=== PATIENT | female | born 1955 | race Caucasian/White ===

== ENCOUNTER 2018-07-12 10:45 | Emergency (ER) | payer OTHER ==
[~2018-07-12] VITALS: Ht 167.6 cm; Wt 45.8 kg
[2018-07-12] MEDS ORDERED: TOBRAMYCIN SULFA5 M1 OPHTHALMIC (11:56)
[2018-07-12] MEDS ORDERED: NORCO 5-325 TA1 EACH PO (11:56)
[2018-07-12] MEDS ORDERED: SENNA-DOCUSATE1 EACH PO (11:56)
[2018-07-12 12:31] VITALS: BP 153/67
== END 2018-07-12 12:47 | disposition home or self-care (01) ==
LOC: ER 10:45
DX: S05.02XA Injury of conjunctiva and corneal abrasion without foreign body, left eye, initial encounter (principal); F41.9 Anxiety disorder, unspecified; F32.9 Major depressive disorder, single episode, unspecified; F20.9 Schizophrenia, unspecified; F17.210 Nicotine dependence, cigarettes, uncomplicated; W20.8XXA Other cause of strike by thrown, projected or falling object, initial encounter; Y93.89 Activity, other specified; Y92.89 Other specified places as the place of occurrence of the external cause; Y99.8 Other external cause status

== ENCOUNTER → 2019-02-03 | Outpatient (CLI) | payer OTHER ==
[~2019-02-03] MED LIST: NORCO 5-325 TA1 EACH PO; SENNA-DOCUSATE1 EACH PO; TOBRAMYCIN SULFA5 M1 OPHTHALMIC
== END ==
LOC: RAD 02:28
DX: Z12.31 Encounter for screening mammogram for malignant neoplasm of breast (principal)

== ENCOUNTER 2021-03-02 16:36 | Inpatient (IN) | payer OTHER ==
[~2021-03-02] VITALS: Ht 170.2 cm; Wt 72.6 kg
--- NOTE | ~2021-03-02 | EMS ---
[address] [address] EMS Patient Care Report Name: RODOLFO PINTO Room #: 462-P [facility] IN M.R.#: [id number] Admission: 03/02/21 Attend Phys: Arsalan Castillo Discharge: 03/21/21 Date of : 57 Report #: [id number] THIS REPORT FOR: //name// Report Transmitted: 03/25/2021 14:18 EMS Care Summary [place], [place]/[facility] Incident [id number] @ 03/02/2021 16:04 Incident Location [address] [place] [address] Patient RODOLFO PINTO Female, 65 Years 1955 Patient Address [address] [place] [id number] Patient History Hyperlipidemia,Urinary Tract Infection (UTI),Bipolar II Disorder,Anemia,Hypothyroidism, Patient Allergies Haldol, Patient Medications Trazodone, Polyethlene Glycol, Oxybutynin, Aspirin, Furosemide, Mirtazapine, Ferrous Sulfate, Mucinex, Bonneau, Meloxicam, Acetaminophen, Atorvastatin, Levothyroxine, Ropinirole, Clonazepam, Chief Complaint AMS Disposition Transported No Lights/[place] Dispatch Reason Sick Person Transported To [address] [address] EMS Patient Care Report Name: RODOLFO IPNTO Room #: 462-P [facility] IN .R.#: [id number] Admission: 03/02/21 Attend Phys: Arsalan Lay Anna Discharge: 03/21/21 Date of : 57 Report #: [id number] M36 DISPATCHED ON A SICK PERSON. M36 ARRIVED TO [facility] TO FIND CONSULTING SOLUTION DIRECTOR PRINTING PAPERWORK FOR EMS. [facility] STAFF STATED PT LABS DRAWN ON THURSDAY CAME BACK SHOWING SIGNS OF SEPSIS. PT STATED NO CHIEF COMPLAINT. PT ALERT TO VERBAL PROMPTS. PT MOANED IN RESPONSE TO QUESTIONS. PT FOUND LAYING SUPINE IN BED. PT NORMALLY AMBULATORY WITHOUT ASSISTIVED DEVICES. PT TOO WEAK TO GET OUT OF BED TODAY. PT MOVED TO STRETCHER VIA TWO PERSON SHEET LIFT. PT SECURED WITH SEATBELTS. NH STAFF STATED PT NORMALLY ALERT AN ORIENTED X4. SURGICAL MASK PLACED ON PT. PT SKIN PALE AND WARM TO THE TOUCH. PT VS MONITORED EN ROUTE. PT REPORT GIVEN. PT MOVED TO HOSPITAL BED VIA TWO PERSON SHEET LIFT. PT CARE AND BELONGINGS TRANSFERRED TO ER STAFF AT [facility] WITHOUT INCIDENT. M36 PLACED BACK IN SERVICE. Initial Vitals @16:25P: 102,R: 20,BP: 108/78,Pain: 4/10,GCS: 12,Glucose: 160,CO: 4,SpO2: 96,Revised Trauma: 11, @16:28P: 104,R: 20,BP: 116/76,Pain: 4/10,GCS: 12,SpO2: 96,Revised Trauma: 11, Assessments @16:16MENTAL:Confused,SKIN:Hot,Pale,HEENT:LUNG SOUNDS:ABDOMEN:PELVIS//GI:Incontinence,EXTREMITIES:Left Arm: Weakness,Right Arm: Weakness,Left Leg: Weakness,Right Leg: Weakness,PULSE:Radial: 2+ Normal,NEURO: Impression Sepsis/Septicemia Procedures @16:16ALS AssessmentResponse: UnchangedSucceeded Timeline 16:01,Call Received 16:01,Dispatch Notified 16:04,Dispatched 16:05,En Route 16:13,On Scene 16:15,At Patient 16:16,ALS Assessment,Response: UnchangedSucceeded, 16:25,BP: 108/78 M,PULSE: 102,RR: 20 R,SPO2: 96 Ox,ETCO2: ,B,PAIN: 4,GCS: 12, 16:26,Depart Scene 16:28,BP: 116/76 M,PULSE: 104,RR: 20 R,SPO2: 96 Ox,ETCO2: ,BG: ,PAIN: 4,GCS: 12, 16:33,At Destination 16:50,Call Closed [facility] [address] [place] [address] EMS Patient Care Report Name: RODOLFO PINTO Room #: 462-P [facility] IN .R.#: [id number] Admission: 03/02/21 Attend Phys: Arsalan Castillo Discharge: 03/21/21 Date of : 57 Report #: [id number] Disclaimer v1.1 Copyright 2020 [employer] This EMS Care Summary contains data elements from the applicable legal record (which may be displayed differently). It is designed to provide pertinent information for the following purposes: continuity of care, clinical quality, and state data reporting. The complete legal record is available to ED staff and administrators of the receiving hospital in [facility]'s Patient Tracker. All data is provided "as is."
[2021-03-02 16:37] VITALS: BP 128/78
[2021-03-02 17:06] LABS: HEMATOCRIT 32.7 % (37.0-47.0); HEMOGLOBIN 10.6 gm/dL (12.0-15.0); MCH 30.6 pg (26.0-34.0); MCHC 32.5 g/dL (28.0-37.0); MCV 94.1 fL (80.0-100.0); PLATELET COUNT 383 thou/uL (150-400); RBC 3.47 mil/uL (4.20-5.00); RDW 14.8 % (10.5-14.5); WBC 27.9 thou/uL (4.0-11.0)
[2021-03-02] MEDS ORDERED: ASA81BEC PO (17:06)
[2021-03-02] MEDS ORDERED: LIPITOR10 MG PO (17:06)
[2021-03-02] MEDS ORDERED: BISMATROL525 MG/15 PO (17:07)
[2021-03-02] MEDS ORDERED: KLONOPIN0.5 MG PO (17:07)
[2021-03-02] MEDS ORDERED: CHILDREN'S ZYRT10 M1 PO (17:07)
[2021-03-02] MEDS ORDERED: COLACE100 MG PO (17:08)
[2021-03-02] MEDS ORDERED: LEVO-T100 MCG PO (17:08)
[2021-03-02] MEDS ORDERED: FUROSEMIDE 20 M20 MG PO (17:08)
[2021-03-02] MEDS ORDERED: SLOW FE142 MG PO (17:08)
[2021-03-02] MEDS ORDERED: OXYBUTYNIN 5 MG5 M1 PO (17:09)
[2021-03-02] MEDS ORDERED: LITHIUM CARBON300 M7 PO (17:09)
[2021-03-02] MEDS ORDERED: MIRTAZAPINE7.5 MG PO (17:09)
[2021-03-02] MEDS ORDERED: MELOXICAM7.5 MG PO (17:09)
[2021-03-02] MEDS ORDERED: ROPINIROLE HCL0.5 MG PO (17:10)
[2021-03-02] MEDS ORDERED: SAPHRIS5 MG DISSOLVE (17:10)
[2021-03-02] MEDS ORDERED: SENEXON-S 50-81 EACH PO (17:10)
[2021-03-02] MEDS ORDERED: DESYREL150 MG PO (17:11)
[2021-03-02] MEDS ORDERED: VITAMIN C500 M2 PO (17:11)
[2021-03-02 17:14] LABS: CALCIUM 11.7 mg/dL (8.5-10.1); CREATININE 6.5 mg/dL (0.6-1.0); POTASSIUM 4.4 mmol/L (3.5-5.1)
[2021-03-02 17:20] LABS: ALBUMIN 2.6 g/dL (3.4-5.0); DIRECT BILIRUBIN 0.3 mg/dL (<0.1-0.2); TOTAL BILIRUBIN 0.6 mg/dL (0.2-1.0); TOTAL PROTEIN 8.5 g/dL (6.4-8.2)
[2021-03-02 17:30] LABS: ABSOLUTE NEUTROPHILS 27.1 thou/uL (1.4-8.2)
[2021-03-02 17:32] LABS: TOXIC GRANULATION 1+
[2021-03-02 17:39] LABS: URINE BILIRUBIN NEGATIVE (Negative); URINE BLOOD 3+ (Negative); URINE CLARITY SL CLOUDY; URINE COLOR YELLOW; URINE GLUCOSE-RANDOM* NEGATIVE (Negative); URINE KETONES NEGATIVE (Negative); URINE LEUKOCYTES-REFLEX 3+ (Negative); URINE NITRITE-REFLEX NEGATIVE (Negative); URINE PROTEIN (DIPSTICK) 2+ (Negative); URINE UROBILINOGEN 0.2 E.U./dl (0.2-1.0)
[2021-03-02 17:42] LABS: BACTERIA-REFLEX >30 Many /HPF (None Seen); CASTS None Seen /LPF (None Seen); CRYSTALS None Seen /LPF (None Seen); SQUAMOUS None Seen /LPF (0-3); URINE RBC 3-10 Few /HPF (NONE SEEN); URINE WBC-REFLEX >25 Many /HPF (0-5)
[2021-03-02 18:25] LABS: BE(vivo) -8.3 mmol/L (-2 to +3); HCO3 17.3 mmol/L (22.0-26.0); PCO2 35.9 mmHg (35.0-45.0); PO2 81.4 mmHg (80.0-100.0); pH 7.302 (7.360-7.450); sO2 95.1 % (92.0-98.0)
[2021-03-02 18:27] LABS: APTT 25.9 Seconds (24.5-32.8); INR 1.09; PROTIME 11.8 Seconds (10.5-12.1)
[2021-03-02 18:35] LABS: FIBRINOGEN > 860 mg/dL (201-437)
[2021-03-02 19:05] VITALS: BP 118/73
[2021-03-02 20:00] VITALS: BP 120/65
[2021-03-02 21:00] VITALS: BP 131/72
[2021-03-02 22:00] VITALS: BP 136/67
[2021-03-02 23:00] VITALS: BP 117/59
[2021-03-03] VITALS (24 sets, daily range): BP systolic 95–154; BP diastolic 51–79
[2021-03-03 02:41] LABS: ABSOLUTE NEUTROPHILS 21.7 thou/uL (1.4-8.2); BASOPHILS 0.1 % (0.0-2.0); EOSINOPHILS 0.4 % (0.0-3.0); HEMATOCRIT 26.5 % (37.0-47.0); LYMPHOCYTES 1.2 % (24.0-44.0); MCH 30.8 pg (26.0-34.0); MCHC 32.3 g/dL (28.0-37.0); MCV 95.6 fL (80.0-100.0); MONOCYTES 6.7 % (1.0-8.0); PLATELET COUNT 311 thou/uL (150-400); POLYS 91.6 % (36.0-66.0); RBC 2.78 mil/uL (4.20-5.00); RDW 14.8 % (10.5-14.5); WBC 23.7 thou/uL (4.0-11.0)
[2021-03-03 02:49] LABS: CALCIUM 9.8 mg/dL (8.5-10.1); CREATININE 5.7 mg/dL (0.6-1.0); POTASSIUM 4.4 mmol/L (3.5-5.1)
[2021-03-03 02:51] LABS: HEMOGLOBIN 8.6 gm/dL (12.0-15.0)
--- NOTE | 2021-03-03 15:59 | NUR ---
PATIENT TRANSFERRED TO AT 1550. CHART TAKEN WITH PATIENT. NO BELONGINGS WERE IN ROOM WITH THE PATIENT.
--- NOTE | 2021-03-03 18:50 | NUR ---
PATEINT ADMITTED TO UNIT. SHE IS LETHERGIC, ONLY GRUNTS WITH MOVED. NOTED TO HAVE LOW GRADE FEVER AND PRN TYLENOL SUPP GIVEN. SMITH CATH IN PLACE. WILL CONT WITH PLAN OF CARE.
--- NOTE | 2021-03-04 04:00 | NUR ---
Assumed pt care at 1900. Pt lethargic,awakens to name and mumbling some words when spoken to, moans with movement. VSS. Repositioned every 2 hrs w/o problems. Rabago patent to DD with yellow urine with sediments noted. NSR on tele. Skin intact. Fall precautions in place, resting quietly at this time w/o any distress noted. Will continue to monitor pt.
[2021-03-04 05:03] VITALS: BP 122/55
[2021-03-04 05:32] LABS: ABSOLUTE NEUTROPHILS 22.6 thou/uL (1.4-8.2); BASOPHILS 0.2 % (0.0-2.0); EOSINOPHILS 0.1 % (0.0-3.0); HEMATOCRIT 27.2 % (37.0-47.0); HEMOGLOBIN 8.6 gm/dL (12.0-15.0); LYMPHOCYTES 2.1 % (24.0-44.0); MCH 30.6 pg (26.0-34.0); MCHC 31.5 g/dL (28.0-37.0); MCV 97.3 fL (80.0-100.0); MONOCYTES 6.4 % (1.0-8.0); PLATELET COUNT 383 thou/uL (150-400); POLYS 91.2 % (36.0-66.0); RBC 2.79 mil/uL (4.20-5.00); RDW 15.8 % (10.5-14.5); WBC 24.8 thou/uL (4.0-11.0)
[2021-03-04 05:44] LABS: ALBUMIN 1.8 g/dL (3.4-5.0); CALCIUM 10.7 mg/dL (8.5-10.1); CREATININE 4.9 mg/dL (0.6-1.0); POTASSIUM 4.8 mmol/L (3.5-5.1); TOTAL BILIRUBIN 0.5 mg/dL (0.2-1.0); TOTAL PROTEIN 6.6 g/dL (6.4-8.2)
[2021-03-04 07:09] VITALS: BP 129/75
--- NOTE | 2021-03-04 08:21 | HC ---
[facility] [place] [address] CONSULTATION Name: RODOLFO PINTO Room #: 452-P ADM IN M.R.#: [id number] Admission: 03/02/21 Attend Phys: Arsalan Castillo Discharge: Date of : 57 Report #: [id number] THIS REPORT FOR: cc: Reece Sigala MD, Dennis R MD Barry,Roderick Soliman MD ~ DOC #: [id number] Roderick Olsen MD DATE OF SERVICE: 03/03/2021 INFECTIOUS DISEASE CONSULTATION ATTENDING PHYSICIAN: Dr. Castillo. REASON FOR EVALUATION: Severe sepsis. REASON FOR CONSULTATION: Complicated urinary tract infection. HISTORY OF PRESENT ILLNESS: Chart was reviewed. The patient was examined. This is a 65-year-old woman with history of bipolar disease, schizophrenia, also has known coronary artery disease, recurrent UTIs, who is living in a facility, is noted to have altered mental status due to concern about possible complicating factor. Blood was drawn. White count was elevated at 21,000, was noted to have some pyuria, transferred to the Emergency Room, it is clear that she was hemodynamically unstable, prompted [facility] admission. Chest x-ray, question of a right-sided pneumonitis, although lactic acid was in the normal range at 0.7, procalcitonin was elevated at 12.77, and as noted above urinalysis showed greater than 25 white cells. Repeat CBC showed white count had increased to 23.7. Due to concern about onset of sepsis, she was treated with combination therapy including Levaquin, vancomycin and Zosyn. It is notable that creatinine was elevated to 6.5, unclear if this is a chronic issue. She is quite confused at this point, it is not clear if she has any true coherence. She is unable to add any additional history. ALLERGIES: LISTED TO HALDOL. CURRENT MEDICATIONS: Include vancomycin, Zosyn, famotidine, acetaminophen, ondansetron. PAST MEDICAL HISTORY: Includes bipolar disease, schizophrenia, coronary artery disease, hypothyroidism, recurrent UTIs, hyperlipidemia. SOCIAL HISTORY: She is disabled, lives in a facility. Details of ethanol or tobacco use were unknown. REVIEW OF SYSTEMS: Unobtainable. [facility] [address] [place] [address] CONSULTATION Name: RODOLFO PINTO Cecilio Room #: [address] [place] [address] IN [facility].#: [id number] Admission: 03/02/21 Attend Phys: Arsalan Castillo Discharge: Date of : 57 Report #: [id number] PHYSICAL EXAMINATION: GENERAL: She appears chronically ill, much older than her age of 65. She is restless and agitated, is not responsive to specific questions or purposeful acts. VITAL SIGNS: Temperature 98.4, pulse 89, respirations 21, blood pressure 131/77. SKIN: Warm, dry, no rashes. HEENT: Normocephalic. She is not requiring supplemental oxygen at this point. NECK: Appears to be supple. LUNGS: Few scattered coarse breath sounds. HEART: Borderline tachycardic. I do not appreciate a murmur. ABDOMEN: Soft, questions guarding. There is no peritoneal signs. GENITOURINARY AND RECTAL: Deferred. LABORATORY DATA: Guttenberg elevated at 2.77. Lactic acid, most recently 0.5. Electrolytes: Sodium 143, potassium 4.4, chloride 111, bicarbonate 17, anion gap of 15, BUN and creatinine 106 and 5.7. CBC: White count of 23.7, H and H 8.6 and 26.5, platelets of 311. ABGs: pH 7.302, pCO2 of 35.8, pO2 of 81.4. ASSESSMENT: Severe sepsis, likely on the basis of complicated urinary tract infection, cannot entirely exclude an early pneumonitis as well. PLAN: Agree with empiric therapy. I think we can probably discontinue the vancomycin. Suggest likely a gram negative issue at this point, certainly could add as needed. We will await culture results including blood, urine as urinary antigens are pending as well. She remains quite tenuous at this point, continue to monitor expectantly. MD PETERSON Zarate/SAMIA <ELECTRONICALLY SIGNED> By: Roderick Olsen MD 03/04/21 0821 0612 0849 Roderick Olsen MD /nt
--- NOTE | 2021-03-04 10:06 | NUR ---
Received asleep on bed; rousable. On room air. Vital signs stable. On telemetry; no signs of chest pain, crushing sensation and heaviness. Assisted in ADLs. Non verbal, moans at times; as per night RN- pt A+Ox4, and ambulating using walker- Dr Castillo informed re: this. On nothing per orem- mouth swabs done. On blood sugar monitoring every 6 hrs. No nausea, no vomiting and no abdominal pain noted. With mukherjee in place- draining well; output measured and recorded accordingly. With NS at 125cc/hr, infusing well at L FA; with SL at R AC. Pt turned on her sides regularly. Incontinent of bowels- checked regularly and changed as needed. Falls bundle in place. No signs of pain noted during assessment. To continue monitoring patient.
[2021-03-04 11:47] LABS: CALCIUM 10.4 mg/dL (8.5-10.1); CREATININE 4.6 mg/dL (0.6-1.0); PHOSPHORUS 4.1 mg/dL (2.5-4.9)
[2021-03-04 15:29] VITALS: BP 146/76
[2021-03-04 20:13] VITALS: BP 139/75
[2021-03-05 04:34] LABS: HEMATOCRIT 28.3 % (37.0-47.0); HEMOGLOBIN 8.7 gm/dL (12.0-15.0); MCH 30.1 pg (26.0-34.0); MCHC 30.8 g/dL (28.0-37.0); MCV 97.9 fL (80.0-100.0); RBC 2.89 mil/uL (4.20-5.00); RDW 16.1 % (10.5-14.5); WBC 23.1 thou/uL (4.0-11.0)
--- NOTE | 2021-03-05 04:55 | NUR ---
ASSUMED PT CARE THIS SHIFT.PT NON-VERBAL,MAKES INCOMREHENSIBLE SOUNDS AND MOANS DURING CARE.PT SEEMS LETHARGIC.LUNGS CLR ON AUSCULTATIONS,VITALS SIGNS STABLE.SMITH DD LARGE AMOUNT OF YELLOW URINE.SR ON MONITOR.ON RA W/O RESP DISTRESS,SATS ADEQUATE.IVF PER ORDERS.NO SIGNIFICANT CHANGES NOTED OVERNIGHT.ASSESSMENT COMPLETED DOCUMENTED.
[2021-03-05 04:58] LABS: ALBUMIN 1.8 g/dL (3.4-5.0); CALCIUM 10.8 mg/dL (8.5-10.1); CREATININE 4.3 mg/dL (0.6-1.0); PHOSPHORUS 1.9 mg/dL (2.6-4.7); POTASSIUM 4.4 mmol/L (3.5-5.1)
[2021-03-05 05:38] VITALS: BP 127/69
[2021-03-05 07:35] VITALS: BP 120/73
--- NOTE | 2021-03-05 10:59 | NUR ---
ASSUMED PT CARE THIS AM. PT ALERT, BUT DOES NOT RESPOND VERBALLY TO QUESTIONS ASKED. PATIENT IN NO APPARENT PAIN. PATIENT HAS A LOOSE COUGH, NOT COUGHING ANY SPUTUM UP. THIS AM, TEMP WAS 101.4, GAVE RECTAL TYLENOL SUPPOSITORY AND FEVER DID NOT RESPOND MUCH. PATIENT QUALIFIES FOR SEPSIS PROTOCOL WELL. PHYSICIAN NOTIFIED OF TEMPERATURE AND THAT PATIENT QUALIFIES FOR SEPSIS PROTOCOL, PHYSICIAN TO MONITOR PATIENT FOR NOW, NO NEW ORDERS. PATIENT HAS A SMITH CATHETER IN PLACE DRAINING WELL. IV PATENT, FLUIDS AND ANTIBIOTICS INFUSING. PATIENT PLACED ON 3 LITERS OF OXYGEN VIA NC TO MAINTAIN AN OXYGEN SATURATION OF 93%. PATIENT REMAINS ON TELEMETRY. PATIENT REMAINS NPO, PROVIDING ORAL CARE TO PATIENT. FALL PRECAUTIONS ARE IN PLACE, CALL LIGHT WITHIN REACH.
--- NOTE | 2021-03-05 13:40 | NUR ---
PT ADMITTED RELATED TO SEVERE SEPSIS/SHOCK. CM REVIEWED CHART AND SPOKE WITH CARE TEAM. CM CALLED AND SPOKE WITH PT'S SON SOY PINTO WORK CALL . HE INDICATED THAT PT RESIDES IN LTC AT [facility]. HE STATED THAT PT HAS BEEN THERE FOR ABOUT 5 YRS. HE STATED THAT PT HAD BEEN INDEPENENT WITH GAIT AND ADLS AND USED NO DME. HE STATED THAT PT HAD BEEN CONVERSANT AND MOSTLY A&O X4. HE STATED THAT HE HAD VISITED AND EATEN DINNER ONCE WITH PT IN THE LAST TWO WEEKS. HE INDICATED THAT FACILITY HADN'T NOTIFIED HIM THAT PT WAS SENT TO HOSPITAL ON THURSDAY. HE INFORMED NURSE THAT HE HAD ACTUALLY NISHA PERSONAL ITEMS TO [facility] ON THURSDAY AND HE HADN'T BEEN TOLD ANYTHING. SON INDICATED THAT HE ANTICIPATES PT RETURNING TO [facility] ONCE MEDICALLY STABLE. PT IS ON IV VANC AND CEFTRIAXONE. CM PROVIDED HOSPITALIST BEST NUMBER TO REACH SON AT. NURSE INDICATED THAT KIRK THOMAS AT FACILITY HAD CALLED FOR UPDATE THIS AM. CM FOLLOWING REGARDING DC PLANNING.
[2021-03-05 18:07] LABS: CALCIUM 10.5 mg/dL (8.5-10.1); POTASSIUM 4.9 mmol/L (3.5-5.1)
[2021-03-05 19:30] VITALS: BP 142/79
[2021-03-06] VITALS (48 sets, daily range): BP systolic 117–186; BP diastolic 51–93
--- NOTE | 2021-03-06 04:13 | NUR ---
Pt. rested quietly when checked on during frequent rounds. She has been non- verbal, but will open her eyes. She has been turned and repositioned. Oral mouth care given frequently. Running sinus rythmn on the heart monitor. Head of the bed elevated. Bed alarm is on.
[2021-03-06 06:37] LABS: CALCIUM 11.2 mg/dL (8.5-10.1); CREATININE 3.8 mg/dL (0.6-1.0); POTASSIUM 4.4 mmol/L (3.5-5.1)
[2021-03-06 06:40] LABS: HEMATOCRIT 31.3 % (37.0-47.0); HEMOGLOBIN 9.2 gm/dL (12.0-15.0); MCH 29.7 pg (26.0-34.0); MCHC 29.5 g/dL (28.0-37.0); MCV 100.9 fL (80.0-100.0); PLATELET COUNT 505 thou/uL (150-400); RDW 17.6 % (10.5-14.5); WBC 26.8 thou/uL (4.0-11.0)
[2021-03-06 08:50] LABS: ABSOLUTE NEUTROPHILS 24.7 thou/uL (1.4-8.2); ANISOCYTOSIS 1+; METAMYELOCYTES 2 %; MYELOCYTES 1 %; POIKILOCYTOSIS SLIGHT; TEARDROPS OCCASIONAL
[2021-03-06 10:35] LABS: HCO3 15.4 mmol/L (22.0-26.0); PCO2 36.2 mmHg (35.0-45.0); PO2 50.7 mmHg (80.0-100.0); pH 7.246 (7.360-7.450); sO2 80.2 % (92.0-98.0)
--- NOTE | 2021-03-06 11:23 | NUR ---
ASSUMED PT CARE THIS AM. PT VSS. PLACED ON 2 LITERS NC INITIALLY, RESPIRATORY INCREASED HER OXYGEN TO 4L NC. PATIENT WITH A SMITH CATHETER DRAINING WELL. IV BECAME INFILTRATED, NEW IV STARTED TO RIGHT FOREARM. FLUIDS INFUSING WELL. PATIENT HAS A LOOSE COUGH, NOT ABLE TO COUGH UP ANY SPUTUM. BEING REPOSITIONED Q2H. REMAINS ON TELEMETRY. PATIENT REMAINS NPO. CRITICAL BLOOD GAS RESULTS CALLED AND REPORTED TO UNIT OF pH 7.25 [address] 51[address] RAMESH ON UNIT AND MADE AWARE. PATIENT TO TRANSFER TO ICU, BIPAP ORDER IN PLACE AND STARTED ON THIS UNIT. [facility] ICU BED AT THIS TIME.
--- NOTE | 2021-03-06 11:47 | NUR ---
PT'S SON CALLED THIS AM. HE INQUIRED ABOUT POSSIBLY SEEING IF ANOTHER FACILITY COULD BE FOUND FOR POSSIBLE ADMISSION. CM INDICATED THAT CM COULDN'T GAUREENTEE THAT ALTERNATE PLACEMENT COULD BE FOUND IN THE TIME FRAME PT WOULD BE MEDICALLY STABLE FOR DC BUT THAT CM COULD SEND SOME REFERRALS OUT. SON WAS AGREEABLE WITH CM SENDING REFERRALS. CM INFOMRED PT'S SON PANCHITO SOY THAT CM HAD SPOKEN TO DON AT [facility] YESTERDAY AND REQUESTED COPY OF DPOA AND FAXED CLINICAL UPDATE. CM INDICATED THAT CM HADN'T YET RECIEVED FAX WITH DPOA FROM THEM. SON EMAILED COPY OF DPOA. CM PLACED ON CHART. LATER THIS MORNING CARE TEAM INDICATED THAT PT HAD CHANGE IN CONDITION AND ORDERED THAT PT BE PUT ON BIPAP AND TRANSFERED TO ICU. PT TO TRANSFER TO ICU ROOM 249. NURSE NOTIFIED SON OF TRANSFER. CM TO FOLLOW INDICATED WITH DC PLANNING.
[2021-03-06 12:07] LABS: GLOBULIN TOTAL 3.4 g/dL (2.2-3.9); M-SPIKE 0.2 g/dL (Not Observed)
--- NOTE | 2021-03-06 12:17 | NUR ---
PT TRANSFERED FROM FLOOR VIA BED ON BIPAP. SEE CRITICAL CARE ASSESSMENT. PT TOLORATING BIPAP 18/03 RATE 12 50%. MINIMALLY RESPONSIVE. PLACED ON MONITOR. D5W INFUSING AT 200CC/HR. VSS. BED IN ROTATION SO ALL RAILS UP.
[2021-03-06 12:58] LABS: HCO3 15.6 mmol/L (22.0-26.0); PCO2 37.6 mmHg (35.0-45.0); PO2 77.4 mmHg (80.0-100.0); sO2 93.3 % (92.0-98.0)
[2021-03-06 12:59] LABS: pH 7.237 (7.360-7.450)
--- NOTE | 2021-03-06 13:45 | NUR ---
CALLED DR. RAMESH, RE ABG RESULTS, DR CURRY PAGED WELL BUT THIS RN DID NOT HEAR BACK. NO NEW ORDERS. ALSO REPORTED MD NEEDS TO TALK TO PT SON REGARDING LUMBAR PUNCTURE BEFORE IT CAN BE DONE. STATED HE WILL CALL BACK ONCE CONSENT OBTAINED. RADIOLOGY NOTIFIED.
[2021-03-06 15:21] LABS: CALCIUM 10.6 mg/dL (8.5-10.1); CREATININE 3.7 mg/dL (0.6-1.0); PHOSPHORUS 2.7 mg/dL (2.5-4.9); POTASSIUM 4.5 mmol/L (3.5-5.1)
--- NOTE | 2021-03-06 17:00 | NUR ---
CALLED DR. IRWIN ([facility]) STATES OK TO PLACE ANY KIND OF CENTRAL LINE.
--- NOTE | 2021-03-06 18:22 | NUR ---
A #6F TRIPLE LUMEN CENTRAL LINE WAS PLACED PER HOSPITAL POLICY AFTER A BEDSIDE TIMEOUT WAS COMPLETED. THE 25CM LINE WAS ADVANCED WITHOUT DIFFICULTY. A STAT CHEST XRAY WAS ORDERED FOR CONFIRMATION
--- NOTE | 2021-03-06 18:29 | NUR ---
PT NOT PROGRESSING TOWARDS GOALS. MOSTLY UNRESPONSIVE STILL OPENS EYES SPONTANEOUSLY BUT DOES NOT TRACK. MINIMAL WITHDRAWAL ALL FOUR EXT. NEUROLOGY HAS SEEN PT AWAITING ORDERS. SON HERE TO VISIT. UPDATE GIVEN. EMOTIONAL SUPPORT GIVEN. CENTRAL LINE PLACED. DR. RODRIGUEZ CALLED [facility] RESULTS. NO NEW ORDERS.
--- NOTE | 2021-03-06 18:38 | NUR ---
DR. CURRY CALLED. PT INCREASED WORK OF BREATHING. USING ACCESSORY MUSCLES TO BREATH. SOUNDS MORE COARSE POST D5W. ORDERS GIVEN TO INCREASE EPAP TO 8. MD STATES HE WILL CALL [facility] TO CONSULT AND CALL BACK.
[2021-03-07] VITALS (28 sets, daily range): BP systolic 100–162; BP diastolic 45–98
[2021-03-07 04:54] LABS: HEMATOCRIT 28.2 % (37.0-47.0); HEMOGLOBIN 8.6 gm/dL (12.0-15.0); MCH 31.1 pg (26.0-34.0); MCHC 30.7 g/dL (28.0-37.0); MCV 101.3 fL (80.0-100.0); RBC 2.78 mil/uL (4.20-5.00); RDW 17.4 % (10.5-14.5); WBC 23.9 thou/uL (4.0-11.0)
[2021-03-07 05:16] LABS: ALBUMIN 1.9 g/dL (3.4-5.0); CALCIUM 10.7 mg/dL (8.5-10.1); CREATININE 3.3 mg/dL (0.6-1.0); MAGNESIUM 2.5 mg/dL (1.8-2.4); POTASSIUM 4.7 mmol/L (3.5-5.1); TOTAL BILIRUBIN 0.3 mg/dL (0.2-1.0)
[2021-03-07 05:21] LABS: PLATELET COUNT 383 thou/uL (150-400)
[2021-03-07 08:54] LABS: ANISOCYTOSIS 1+; METAMYELOCYTES 2 %
--- NOTE | 2021-03-07 09:09 | NUR ---
SPOKE WITH SON SOY AT 0909 TO CONFIRM CONSENT FOR LUMBAR PUNCTURE. CONSENT SIGNED OVER TELEPHONE AND VERIFIED BY 2RNS ON 03/06 AT 1300. SOY AWARE OF PROCEDURE TO OCCUR THIS AM.
--- NOTE | 2021-03-07 12:11 | EKG ---
[facility] [place] [address] ELECTROCARDIOGRAM REPORT Name: RODOLFO PINTO Room #: 249-P ADM IN M.R.#: [id number] Admission: 03/02/21 Attend Phys: Arsalan Castillo Discharge: Date of : 57 Report #: [id number] [facility] Test Date: 2021-03-07 Test Time: 11:47:09 Pat Name: RODOLFO PINTO Department: Room: 249 P Gender: F Story Teller: LISETH : 1955 Requested By: See Benitez Order Number: [id number] MD: Joel Campbell Measurements Intervals [place] Rate: 79 P: 65 VT: 128 QRS: -43 QRSD: 122 T: 81 QT: 396 QTc: 455 Interpretive Statements Sinus rhythm Multiple ventricular premature complexes Nonspecific IVCD with LAD Left ventricular hypertrophy Anterior infarct, old Baseline wander in lead(s) V1,V3 No previous ECG available for comparison Electronically Signed On 03-07-2021 12:11:06 CDT by Joel Campbell [email or web address] <ELECTRONICALLY SIGNED> By: Joel Campbell MD, [facility] 03/07/21 1211 1147 1147 Joel Campbell MD, [facility] /EPI
[2021-03-07 13:44] LABS: CSF GLUCOSE 161 mg/dL (40-70); CSF PROTEIN 38 mg/dL (15-45)
[2021-03-07 14:06] LABS: CSF CLARITY CLEAR; CSF COLOR COLORLESS; CSF RBC 1 /mm3; CSF WBC 2 /mm3 (0-10); VOLUME 11 ml
--- NOTE | 2021-03-07 15:18 | NUR ---
PATIENT OFF UNIT FOR LP AROUND 1230 THIS AFTERNOON. UPON RETURN TO ICU NOTED PATIENT TO HAVE FREQUENT EPISODES OF BRADYCARDIA. NOTIFIED DR. STROM. NAQVI FOR NOW. PAGE OUT TO DR. RAMESH. EKG DONE SHOWING SINUS BRADYCARDIA. BLOOD PRESSURES STABLE. PATIENT REMAINS MINIMALLY RESPONSIVE. WILL OPEN EYES AND MOAN BUT DOES NOT FOLLOW ANY PURPOSEFUL COMMANDS. IV FLUIDS INFUSING PER RENAL ORDERS. CONTINUOUS BIPAP. SMITH PATENT. ADQUATE URINE OUTPUT.
--- NOTE | 2021-03-07 16:20 | EKG ---
[place] [address] [facility] [facility] [employer] [employer] [address] ELECTROCARDIOGRAM REPORT Name: RODOLFO PINTO Room #: 249-P ADM IN M.R.#: [id number] Admission: 03/02/21 Attend Phys: Arsalan Castillo Discharge: Date of : 57 Report #: [id number] [facility] Test Date: 2021-03-07 Test Time: 15:16:23 Pat Name: RODOLFO PINTO Department: Room: 249 P Gender: F Signal Worker: LISETH : 1955 Requested By: See Benitez Order Number: [id number] MD: Joel Campbell Measurements Intervals [place] Rate: 49 P: 46 MN: 130 QRS: -39 QRSD: 124 T: 65 QT: 445 QTc: 402 Interpretive Statements Sinus bradycardia Nonspecific IVCD with LAD Anteroseptal infarct, age indeterminate Compared to ECG 03/07/2021 11:47:09 Sinus rhythm no longer present Ventricular premature complex(es) no longer present Left ventricular hypertrophy no longer present Myocardial infarct finding still present Electronically Signed On 03-07-2021 16:20:50 CDT by Joel Campbell [email or web address] <ELECTRONICALLY SIGNED> By: Joel Campbell MD, [facility] 03/07/21 1620 1516 1516 Joel Campbell MD, [facility] /EPI
[2021-03-07 21:06] LABS: SERUM ALBUMIN 2.5 g/dL (3.8-4.8)
[2021-03-08] VITALS (26 sets, daily range): BP systolic 90–157; BP diastolic 47–119
[2021-03-08 04:55] LABS: BE(vivo) -11.8 mmol/L (-2 to +3); HCO3 14.2 mmol/L (22.0-26.0); PCO2 32.9 mmHg (35.0-45.0); PO2 72.7 mmHg (80.0-100.0); sO2 92.5 % (92.0-98.0)
[2021-03-08 04:56] LABS: pH 7.254 (7.360-7.450)
[2021-03-08 05:24] LABS: HEMATOCRIT 27.4 % (37.0-47.0); HEMOGLOBIN 8.2 gm/dL (12.0-15.0); MCH 30.1 pg (26.0-34.0); MCHC 29.8 g/dL (28.0-37.0); RBC 2.72 mil/uL (4.20-5.00); RDW 17.3 % (10.5-14.5); WBC 27.3 thou/uL (4.0-11.0)
[2021-03-08 05:43] LABS: CALCIUM 10.6 mg/dL (8.5-10.1); CREATININE 2.8 mg/dL (0.6-1.0); POTASSIUM 4.3 mmol/L (3.5-5.1)
--- NOTE | 2021-03-08 10:27 | 2DMMODE ---
[facility] [place] [address] 2 D/M-MODE ECHOCARDIOGRAM Name: RODOLFO PINTO Cecilio Room #: 249-P ADM IN M.R.#: [id number] Admission: 03/02/21 Attend Phys: Arsalan Castillo Discharge: Date of : 57 Report #: [id number] THIS REPORT FOR: cc: Reece Sigala MD, Dennis R MD Santiago, Patrick MD LOCATED WITHIN [facility] ~ APPROVED REPORT Study performed: 03/08/2021 09:28:03 EXAM: Comprehensive 2D, Doppler, and color-flow Echocardiogram Patient Location: ICU Room #: 249 Status: routine BSA: 1.83 HR: 69 bpm BP: 142/73 mmHg Rhythm: NSR Other Information Study Quality: Good Indications Arrhythmia 2D Dimensions RVDd: 33.69 mm IVSd: 10.44 (7-11mm) LVOT Diam: 21.73 (18-24mm) LVDd: 45.58 mm PWd: 9.93 (7-11mm) Ascending Ao: 33.84 (22-36mm) LVDs: 30.87 (25-40mm) Left Atrium: 32.19 (27-40mm) Aortic Root: 31.77 mm IVC: 13.00 mm Volumes Left Atrial Volume (Systole) Single Plane 4CH: 66.49 mL Single Plane 2CH: 48.55 mL LA ESV Index: 34.00 mL/m2 Aortic Valve AoV Peak Pradeep.: 1.51 m/s AO Peak Gr.: 9.12 mmHg LVOT Max P.34 mmHg LVOT Max V: 1.35 m/s CELIA Vmax: 3.32 cm2 [facility] [address] [place] [address] 2 D/M-MODE ECHOCARDIOGRAM Name: RODOLFO PINTO Room #: 249-P [facility] IN ..#: [id number] Admission: 03/02/21 Attend Phys: Arsalan Clay Discharge: Date of : 57 Report #: [id number] Pulmonary Valve PV Peak Pradepe.: 1.20 m/s PV Peak Gr.: 5.72 mmHg Tricuspid Valve TR Peak Pradeep.: 2.96 m/s TR Peak Gr.: 35.07 mmHg PA Pressure: 40.00 mmHg Left Ventricle The left ventricle is normal size. There is normal LV segmental wall motion. There is normal left ventricular wall thickness. The left ventricular systolic function is normal. The left ventricular ejection fraction is within the normal range. LVEF is 55-60%. Grade I - abnormal relaxation pattern. Right Ventricle The right ventricle is normal size. The right ventricular systolic function is normal. Atria Left atrium is borderline dilated. Right atrium is borderline dilated. Aortic Valve The aortic valve is normal in structure. The Aortic valve is sclerotic. No aortic regurgitation is present. There is no aortic valvular stenosis. Mitral Valve The mitral valve is normal in structure. Trace mitral regurgitation. No evidence of mitral valve stenosis. Tricuspid Valve The tricuspid valve is normal in structure. There is trace tricuspid regurgitation. Estimated PAP 40 mmHg. There is mild pulmonary hypertension. Pulmonic Valve The pulmonary valve is normal in structure. There is no pulmonic valvular regurgitation. Great Vessels The aortic root is normal in size. IVC is normal in size and collapses >50% with inspiration. [facility] [place] [address] [place] [address] 2 D/M-MODE ECHOCARDIOGRAM Name: RODOLFO PINTO Room #: 249-P [facility] IN .R.#: [id number] Admission: 03/02/21 Attend Phys: Arsalan Clay Discharge: Date of : 57 Report #: [id number] Pericardium There is no pericardial effusion. <Conclusion> Normal left ventricle size/wall thickness Ejection fraction 60% Normal right ventricular size/function Mild biatrial enlargement Color-flow Doppler studies performed of the aortic/mitral/tricuspid/pulmonary valve Normal aortic/mitral valve structure and function Trace tricuspid valve insufficiency Pulmonary systolic pressure estimated 40 mmHg No pericardial effusion Normal aortic root size. <ELECTRONICALLY SIGNED> By: Joel Campbell MD, [facility]ATED [facility] 03/08/21 1027 1027 1027 Joel Campbell MD, FACC /INF
[2021-03-08 12:26] LABS: BE(vivo) -6.6 mmol/L (-2 to +3); HCO3 18.1 mmol/L (22.0-26.0); PCO2 33.1 mmHg (35.0-45.0); PO2 85.1 mmHg (80.0-100.0); pH 7.356 (7.360-7.450); sO2 96.2 % (92.0-98.0)
--- NOTE | 2021-03-08 14:04 | NUR ---
Discussed during am rounds and los with hospitalist. No anticipated weekend dc. She lives at [facility]. Cont to require use of BIPAP and oxygen. Will cont. Following as needed for dc needs.
[2021-03-08 14:07] LABS: 25-HYDROXY TOTAL 19.5 ng/mL (30.0-100.0)
--- NOTE | 2021-03-08 17:29 | NUR ---
dr paredes called abg results. general update given. no new orders.
--- NOTE | 2021-03-08 17:29 | NUR ---
Pt son here. Update given. Emotional support given.
--- NOTE | 2021-03-08 18:30 | NUR ---
PT PROGRESSING TOWARDS GOALS. TOLORATING L NASAL CANNULA. BICARB GTT. US THYROID DONE TODAY. ECHO DONE TODAY.
[2021-03-09] VITALS (22 sets, daily range): BP systolic 98–161; BP diastolic 51–107
[2021-03-09 09:48] LABS: HEMATOCRIT 25.5 % (37.0-47.0); HEMOGLOBIN 8.2 gm/dL (12.0-15.0); MCH 30.3 pg (26.0-34.0); MCHC 32.1 g/dL (28.0-37.0); MCV 94.2 fL (80.0-100.0); PLATELET COUNT 327 thou/uL (150-400); WBC 22.3 thou/uL (4.0-11.0)
[2021-03-09 10:08] LABS: ALBUMIN 2.1 g/dL (3.4-5.0); CALCIUM 10.1 mg/dL (8.5-10.1); CREATININE 2.6 mg/dL (0.6-1.0); PHOSPHORUS 3.2 mg/dL (2.5-4.9); POTASSIUM 3.9 mmol/L (3.5-5.1)
--- NOTE | 2021-03-09 10:19 | NUR ---
ASSUMED CARE OF PT AT 0700 DR. RAMESH AT BEDSIDE AT 0900, NO NEW ORDERS GIVEN DR. IRWIN AT BEDSIDE AT 0915, NO NEW ORDERS GIVEN PT SON IS AT THE BEDSIDE AT 1018, ANSWERED QUESTIONS PER POC
[2021-03-09 13:26] LABS: ABSOLUTE NEUTROPHILS 21.9 thou/uL (1.4-8.2); ANISOCYTOSIS 1+
[2021-03-09 23:28] LABS: URINE BILIRUBIN NEGATIVE (Negative); URINE BLOOD 3+ (Negative); URINE CLARITY CLEAR; URINE COLOR YELLOW; URINE GLUCOSE-RANDOM* NEGATIVE (Negative); URINE KETONES NEGATIVE (Negative); URINE LEUKOCYTES 3+ (Negative); URINE NITRITE NEGATIVE (Negative); URINE PROTEIN (DIPSTICK) NEGATIVE (Negative); URINE SPECIFIC GRAVITY <= 1.005 (1.005-1.035); URINE UROBILINOGEN 0.2 E.U./dl (0.2-1.0)
[2021-03-10] VITALS (22 sets, daily range): BP systolic 110–163; BP diastolic 51–101
[2021-03-10 00:07] LABS: CASTS None Seen /LPF (None Seen); MUCUS 4-6 Moderate strn/LPF (None Seen); SQUAMOUS None Seen /LPF (0-3); URINE RBC 3-10 Few /HPF (NONE SEEN)
[2021-03-10 00:08] LABS: BACTERIA 1-9 Few /HPF (None Seen); CRYSTALS None Seen /LPF (None Seen); TRANSITIONAL EPITHEL CELL 0-3 Few /LPF (None Seen)
[2021-03-10 05:02] LABS: HEMATOCRIT 26.6 % (37.0-47.0); HEMOGLOBIN 8.3 gm/dL (12.0-15.0); MCH 29.6 pg (26.0-34.0); MCHC 31.2 g/dL (28.0-37.0); MCV 95.1 fL (80.0-100.0); PLATELET COUNT 351 thou/uL (150-400); RBC 2.79 mil/uL (4.20-5.00); RDW 15.2 % (10.5-14.5); WBC 24.7 thou/uL (4.0-11.0)
[2021-03-10 05:24] LABS: ALBUMIN 2.1 g/dL (3.4-5.0); CALCIUM 9.3 mg/dL (8.5-10.1); CREATININE 2.3 mg/dL (0.6-1.0); POTASSIUM 3.9 mmol/L (3.5-5.1)
[2021-03-10 06:41] LABS: ABSOLUTE NEUTROPHILS 23.5 thou/uL (1.4-8.2); METAMYELOCYTES 2 %
[2021-03-10 06:42] LABS: ANISOCYTOSIS 1+
--- NOTE | 2021-03-10 17:46 | NUR ---
PT TRANSFERED TO ROOM 245 APPROX 1530. REPORT GIVEN TO ME BY DAY RN. PT WITH 2 POINT RESTRAINT. DOES NOT FSC. PT SAFE IN BED WITH RAILS UP AND ALARM ON.
--- NOTE | 2021-03-10 20:15 | NUR ---
ASSUMED PATIENT CARE AT 0700. PATIENT FOLLOWING COMMANDS AND WAS ABLE TO STATE HER NAME WHEN ASKED. IN RESTRAINTS DUE TO PICKING AT CENTRAL LINE. SON AT BEDSIDE AND UPDATED. SON CALLED FOR SECOND UPDATE AT 1750. PATIENT MOVED TO ROOM 245 AROUND 1530. REPORT GIVEN TO NEW NURSE.
[2021-03-11] VITALS (31 sets, daily range): BP systolic 123–179; BP diastolic 32–108
[2021-03-11 04:55] LABS: HEMATOCRIT 25.8 % (37.0-47.0); HEMOGLOBIN 8.3 gm/dL (12.0-15.0); MCH 30.6 pg (26.0-34.0); MCV 95.4 fL (80.0-100.0); RBC 2.7 mil/uL (4.20-5.00); RDW 15.2 % (10.5-14.5); WBC 22.7 thou/uL (4.0-11.0)
[2021-03-11 05:02] LABS: ALBUMIN 2.2 g/dL (3.4-5.0); CALCIUM 8.8 mg/dL (8.5-10.1); CREATININE 2.3 mg/dL (0.6-1.0); PHOSPHORUS 2.8 mg/dL (2.6-4.7); POTASSIUM 3.9 mmol/L (3.5-5.1)
--- NOTE | 2021-03-11 14:33 | NUR ---
Chart review. discussed during los with hospitalist and during am rounds. She cont. to require restraints related her pulling on lines. New order for pt, ot, and st eval and tx. She lives at [facility]. will continue following as needed for dc needs.
[2021-03-11 15:08] LABS: CSF IgG 2.5 mg/dL (0.0-8.6)
--- NOTE | 2021-03-11 18:53 | NUR ---
PT HAD A SWALLOW EVALUATION TODAY. FAILED SWALLOW EVALUATION. MRI SCREENING COMPLETED. MRI COULD NOT BE DONE MRI WAS BACKED UP PER THE TAPE FASTENER MACHINE OPERATOR. DR. RAMESH AWARE. PHYSICAL THERAPY WORKED WITH THE PATIENT AND GOT HER UP AND SAT HER AT THE BEDSIDE. PATIENT VERY WEAK. PT HAS BEEN LESS RESTLESS THAN YESTERDAY. PT STILL HAS RESTRAINTS ON PT IS VERY IMPULSIVE AND TRY TO GET OUT OF THE BED AND PICK THE CENTRAL LINE DRESSING. URINE OUTPUT IS ADEQUATE THROUGHOUT THE DAY. PT STILL NPO TODAY. PLAN TO START DOBHOFF OR TPN TOMORROW PER . FAMILY NOTIFIED OF PT CONDITION TODAY. CONTINUE TO MONITOR.
[2021-03-12] VITALS (13 sets, daily range): BP systolic 137–153; BP diastolic 32–91
[2021-03-12 05:47] LABS: ALBUMIN 2.1 g/dL (3.4-5.0); CALCIUM 7.9 mg/dL (8.5-10.1); CREATININE 1.9 mg/dL (0.6-1.0); PHOSPHORUS 2.9 mg/dL (2.5-4.9); POTASSIUM 4.1 mmol/L (3.5-5.1)
--- NOTE | 2021-03-12 07:42 | NUR ---
Minimal progress toward goals. Pt speaking more clearly, able to answer yes/no appropriately but still disoriented to place, time and situation. Sodium level down to 153 this a.m. Urine output 2600 cc this shift. Pt remains in soft wrist restraints bilaterally as she tends to pull at mukherjee, monitor wires, and attempts OOB by self. High fall risk precautions remain in place.
--- NOTE | 2021-03-12 14:02 | PATH ---
[facility] [address] [place] [address] PATHOLOGY RPT PROCEDURE Name: RODOLFO PINTO Room #: 245-P ADM IN M.R.#: [id number] Admission: 03/02/21 Date of : 57 Discharge: Report #: [id number] Path Case #: [id number] Note [facility] Accession Number: [id number] TESTS RESULT FLAG UNITS REF RANGE LAB Clinician Provided Cytology Information No. of containers..01 Other (Miscellaneous) Source: CSF DIAGNOSIS: 02 CSF NEGATIVE FOR MALIGNANT EPITHELIAL CELLS. NEGATIVE FOR VIRAL INCLUSIONS OR PARASITIC ORGANISMS. RARE LYMPHOCYTES IDENTIFIED. NEGATIVE FOR ACUTE INFLAMMATIONS. Signed out by: Alexandra Zuleta MD, Pathologist NPI- [id number] Performed by: Josefa Hunter, Bus Monitor ([facility]) Gross description: 01 5ML, CLEAR COLORLESS, 1 TP /LCS 03/08/2021 1903 Local FLAG LEGEND: L-Low Normal,H-High Normal,LL-Alert Low,HH-Alert High <-Panic Low,>-Panic High,A-Abnormal,AA-Critical Abnormal Performed at: [address] [place] [address] Lizandro Mario MD, [address] [address] Alexandra Zuleta MD, Specimen Comment: A courtesy copy of this report has been sent to [phone], [phone]- Specimen Comment: [phone] Specimen Comment: Report sent to / DR CASTLE Specimen Comment: A duplicate report has been generated due to demographic updates. Performed at: [address], [place], [place] [id number] MD Lizandro Mario MD Phone: [phone]
--- NOTE | 2021-03-12 16:01 | NUR ---
1000-'Iraj RODRIGUEZ & DAVID IN.--VW PT HAS BEEN CONSTANT MOTION,SCREAMING & YELLING OUT ALMOST CINTINUALLY.FENTANYL FOR PAIN EARLIER.PT WILL ANSWER TO NAME,PLACE,IS COOPERATIVE AT TIMES.WHEN ASKED,YES TO PAIN,NO TO SOB.DOBHOFF ATTEMPTED X2 W KUB'S DONE p EACH ATTEMPT. KINKS AND GOES UP BOTH TIMES.WILL HAVE 2ND RN ATTEMPT.STRICT NPO HAS BEEN MAINTAINED.PT WATING ON BED TO TX OUT OF ICU.SPOKE Marilu ORTIZ IN MRI EARLIER TODAY-PT MOVING AROUND TOO MUCH,WOULD NEVER LAY STILL FOR MRI. THEY WILL CK IN AM TO SEE IF MENTATION IS IMPROVED & PT WILL BE ABLE TO LAY STILL.--VW
--- NOTE | 2021-03-12 22:01 | NUR ---
CALL PLACED TO CHRISTIE SO AT 2100 AND SHE WAS UPDATED TO PT BEHAVIOR, PT WAS YELLING AND VERY RESTLESS, PT HAD ALREADY RECIEVED PAIN MEDICATION FOR GENERALIZED PAIN WITH MINIMAL AFFECT, ORDER RECEIVED, PT MEDICATED AND AT THIS TIME SEEM A LITTLE CALMER WITH ONLY INTERMITTENT CALLING OUT. PT CONTINUES TO HAVE AND NEED ADOLFO WRIST RESTRAINTS, SHE IS ABLE TO STATE HER NAME AND DATE OF AND KNOWS SHE IS IN THE HOSPITAL BUT DOES NOT ANSWER YEAR OR THE WHY SHE IS IN HOSPITAL QUESTIONS AND WHEN ASK SHE STARTS YELLING AGAIN. AT THIS TIME PT IS RESTING. o2 IS 98% ON ROOM AIR REP RATE 17 AND REG, PT IS IN NO DISTRESS. PT IS IN SITE AND FREQUENT MONITORING CONTINUES.
[2021-03-13 00:01] VITALS: BP 133/50
--- NOTE | 2021-03-13 01:37 | NUR ---
PT CONTINUES TO BE CONFUSED. RESTING NOW. WHEN AWAKE SHE ASKS TO HAVE WATER.
--- NOTE | 2021-03-13 02:03 | NUR ---
PT TRANSFERED TO ROOM 205 WITH ALL HER BELONGINGS. PT IS CALMER BUT STILL NOT ASLEEP THOUGH SHE WAS NOT CALLING OUT. TRANSFER REPORT GIVEN TO Jana VEGA AND PT CARE TRANSFERED TO José Miguel vega ON PT'S ARRIVAL TO ROOM 205.
[2021-03-13 02:11] VITALS: BP 150/64
[2021-03-13 05:13] LABS: ALBUMIN 2.1 g/dL (3.4-5.0); CALCIUM 7.6 mg/dL (8.5-10.1); CREATININE 1.7 mg/dL (0.6-1.0); PHOSPHORUS 2.8 mg/dL (2.5-4.9); POTASSIUM 4.3 mmol/L (3.5-5.1)
[2021-03-13 07:41] VITALS: BP 142/89
[2021-03-13 11:25] VITALS: BP 136/49
[2021-03-13 15:21] VITALS: BP 152/74
--- NOTE | 2021-03-13 18:39 | NUR ---
PT IS AXOX1-2, SELF AND PLACE. PT KNOWS SHE IS IN THE HOSPITAL BUT UNABLE TO STATE WHY SHE IS HERE. PT IS ABLE TO STATE NAME; UNABLE TO STATE BIRTHDAY CORRECTLY EVERY ASSESSMENT. VSS, AFEBRILE, SR WITH PVCs ON MONITOR. PT HAS BEEN AGITATED THROUGHOUT THE AM; CALLING OUT FOR WATER, AND THE NURSE. DURING ASSESSMENTS, PT STATES SHE IS ANXIOUS, SCARED OF THE DARK, AND WANTS TO GET UP/OUT OF HERE. PT WAS REDIRECTED SEVERAL TIMES, STATING SHE WAS UNABLE TO HAVE WATER DUE TO SWALLOWING/NPO. PT WOULD SCREAM OUT, BUT WOULD TAKE MOUTH SWABS. DR HERNANDEZ CONSULTED; DOBHOFF UNABLE TO BE PLACED KUB SHOWED DOBHOFF COILED. DR GILLIS CONSULTED; RX ATIVAN FOR AGITATION. POC IS TO CONTINUE DEXTROSE; ABX THERAPY D/C BY DR RODRIGUEZ; ASSESS PT MENTAL STATUS; SPEECH THERAPY CONSULT TO CONTINUE TO ASSESS SWALLOWING. PT IS IN RESTRAINTS; REORDERED THIS AM. FALL PRECAUTIONS IN PLACE. FREQUENT ROUNDING.
[2021-03-13 19:41] VITALS: BP 126/81
[2021-03-14 04:16] VITALS: BP 128/95
--- NOTE | 2021-03-14 04:40 | NUR ---
ASSUMED PT CARE AT CHANGE OF SHIFT, AWAKE, ALERT TO SELF, AGITATED AND IMPULSIVE MAJORITY OF SHIFT, REDIRECTED AND REORIENTED TO REALITY MULTIPLE TIMES THIS SHIFT, PRN ATIVAN GIVEN PER MAR, BRUISING TO THE BILATERAL HANDS NOTED FROM PULLING ON RESTRAINS NOTED, NO OPEN SKIN TEARS, SKIN REASSESSED PER RESTRAIN PROTOCOL, LOOSED AND REAPPLIED, PT HAD MULTIPLE WATERY DARK STOOL, FINAL INSPECTOR MOVEMENT ASSEMBLY NOTIFIED, ORDERS FOR FMS AND HEMOCCULT OBTAINED, PT ASSEESSMENTS CHARTED, VSS, NO NEEDS AT THIS TIME, WILL CONTINUE TO MONITOR PER POC
[2021-03-14 06:00] LABS: ALBUMIN 2.1 g/dL (3.4-5.0); CALCIUM 7.7 mg/dL (8.5-10.1); CREATININE 1.5 mg/dL (0.6-1.0); PHOSPHORUS 2.6 mg/dL (2.5-4.9); POTASSIUM 4.2 mmol/L (3.5-5.1)
[2021-03-14 08:03] VITALS: BP 118/77
[2021-03-14 08:32] VITALS: BP 144/76
--- NOTE | 2021-03-14 11:46 | NUR ---
Case discussed with the care team. Pt remains in restraints to maintain ivf. Unable to tolerate dobhoff placement. Pysch following. ST to reeval her swallow to determine nutritional recommendations. Renal following and recommending goals of care discussion if pt needs to remain NPO. Will follow.
--- NOTE | 2021-03-14 14:16 | HC ---
[facility] [place] [address] CONSULTATION Name: RODOLFO PINTO Room #: 205-P ADM IN M.R.#: [id number] Admission: 03/02/21 Attend Phys: Arsalan Castillo Discharge: Date of : 57 Report #: [id number] THIS REPORT FOR: cc: Reece Sigala MD, Dennis R MD Khosla, Parveen K. MD ~ DOC #: [id number] Gabriel Eason MD DATE OF SERVICE: 03/06/2021 HISTORY OF PRESENT ILLNESS: A 65-year-old female patient, who was seen by me for altered mental status. I reviewed the patient's record. I talked to the nurses' looking after this patient. The patient apparently lives in a usp, but she was functional, but now she is completely nonverbal and she is not following even simple commands. In fact, she does not even open her eyes for me. There is no family member is here. It looks like from the record when she came in, she had a high creatinine of 5.2. She has a history of anxiety, schizophrenia, depression, and tubal ligation. A 14-point review of system is only from the record, looks like multiple consultants are following this patient. ID has seen this patient and patient apparently has severe sepsis. At one time lithium level was elevated. Her antibiotic is being changed by ID. Multiple consultants are following up. She has an acute hypoxic respiratory failure. She has a severe encephalopathy. In fact, she does not respond at all to anything. Last sodium checked was 168 and it has been running more than 160 for some time. Last GFR was 12 and it has been low again for some time. This was a relevant 14-point review of system I can get. PAST MEDICAL HISTORY: Positive for schizophrenia and multiple other psychiatric problem. FAMILY HISTORY: Unavailable. SOCIAL HISTORY: She apparently smokes. PHYSICAL EXAMINATION: Very limited. She has no response. She did not even respond to painful stimuli, except when I scratched her feet and that may be upgoing plantar and that is the only response I could get. I can tell about meningeal sign, because she is completely up. She has respiratory difficulty and her blood pressure is maintained at 163/73, respirations 25, pulse is 84. She is moderately built. Cardiac examinations appear unremarkable. LABORATORY DATA: White count is 26.8. Other labs are summarized above. She does not have much edema. She has no imaging study of the brain. IMPRESSION: This patient has a severe encephalopathy. There are multiple causes for that. She has extremely high sodium and she has a very low GFR. [address] [address] CONSULTATION Name: MILLIERODOLFO Cecilio Room #: 205-P [facility] IN M.R.#: [id number] Admission: 03/02/21 Attend Phys: Arsalan Castillo Discharge: Date of : 57 Report #: [id number] This is in addition to other problems like sepsis. However, intracranial pathology need to be excluded in this patient as she had no imaging study of the brain. We will try to find out if she is stable enough to go for a CAT scan and if she is, I would like to do a CAT scan in this patient. I will also get an EEG done. We will try to talk to the family in the morning to see how aggressive they want to be and what her wishes are. Thank you very much for this referral. Gabriel Eason MD PK/MAYE <ELECTRONICALLY SIGNED> By: Gabriel Eason MD 03/14/21 1416 1828 221 Gabriel Eason MD /nt
--- NOTE | 2021-03-14 14:17 | EEG ---
[facility] [place] [address] ELECTROENCEPHALOGRAM Name: RODOLFO PITNO Room #: 205-P ADM IN M.R.#: [id number] Admission: 03/02/21 Attend Phys: Arsalan Joel Discharge: Date of : 57 Report #: [id number] THIS REPORT FOR: //name// DOC #: [id number] Gabriel Eason MD DATE OF SERVICE: 03/07/2021 This patient is being evaluated for the possibility of encephalopathy. EEG was done by placing the electrode by standard 10-20 system of electrode placement. Both referential and sequential montages were used for recording. Background activity in this patient's EEG is about 7 Hz and 30 microvolt. Photic stimulation is unremarkable. No active epileptiform activity was noticed. IMPRESSION: This is an abnormal EEG because it is disorganized and poorly formed. That is a nonspecific abnormality which can occur with dementia, encephalopathy, effect of psychotropic medication, etc. Clinical correlation is recommended. Gabriel Eason MD PK/RIOS <ELECTRONICALLY SIGNED> By: Gabriel Eason MD 03/14/21 1417 1855 [id number] Gabriel Eason MD /nt
[2021-03-14 15:25] VITALS: BP 132/98
--- NOTE | 2021-03-14 18:47 | NUR ---
REPORT CALLED TO BORREN. VEGA ON . NO QUESTIONS OR CONERNS AT TIME OF REPORT.
[2021-03-14 19:54] VITALS: BP 125/82
[2021-03-15 00:08] VITALS: BP 124/71
[2021-03-15 05:16] LABS: ALBUMIN 1.6 g/dL (3.4-5.0); CALCIUM 7.1 mg/dL (8.5-10.1); CREATININE 1.4 mg/dL (0.6-1.0); PHOSPHORUS 3.1 mg/dL (2.5-4.9); POTASSIUM 4.7 mmol/L (3.5-5.1)
--- NOTE | 2021-03-15 06:16 | NUR ---
Pt transferred at shift change from 2N. Alert to self only on initial encounter but more alert this morning and able to voice needs. Pt restless/impulsive and attempts to pull on lines when restraints are released. Yelling out loud on and off,medicated with Ativan with relief noted. Rabago patent to DD with light yellow urine,Rectal tube in palce with loose balck stools,some leaking noted;tube irrigated. Repositioned as tolorated and restraints released every 2 hrs. RIJ triple lumen line with IVF infusing w/o any problems. Pt's sats in the 80's at HSfingers freezing cold,oxygen applied at 2L/NS sats up to 98-100%.
[2021-03-15 10:13] LABS: HEMATOCRIT 23.6 % (37.0-47.0); HEMOGLOBIN 7.3 gm/dL (12.0-15.0); MCH 30.2 pg (26.0-34.0); MCHC 30.9 g/dL (28.0-37.0); MCV 97.6 fL (80.0-100.0); RBC 2.42 mil/uL (4.20-5.00); RDW 15.6 % (10.5-14.5); WBC 24.3 thou/uL (4.0-11.0)
[2021-03-15 10:28] LABS: ALBUMIN 1.7 g/dL (3.4-5.0); DIRECT BILIRUBIN 0.1 mg/dL (<0.1-0.2); TOTAL BILIRUBIN 0.3 mg/dL (0.2-1.0); TOTAL PROTEIN 4.3 g/dL (6.4-8.2)
--- NOTE | 2021-03-15 13:57 | NUR ---
Chart review. Discussed during los with hospitalist, [facility] to review for admit to [facility]S prior to returning to [facility]. CM team sent update to [facility]. If [facility] able to accept and medically stable for dc to [facility], bedside nurse to call report to [phone].
--- NOTE | 2021-03-15 14:15 | NUR ---
FAXED CLINICAL UPDATES TO [facility], ATTENTION TO [facility]. CONFIRMED WITH ALBERTO/FRONT OFFICE THAT THEY RECEIVED. [facility] P [phone]; FAX [phone]
--- NOTE | 2021-03-15 17:30 | NUR ---
PT ASSESSED AT START OF SHIFT. CALM THIS AM AND BECAME A LITTLE MORE COHERENT DURING THE AM. THIS AFTERNOON PT AFTER HER BATH PT BECAME VERY PARANOID AND ANXIOUS SCREAMING AT THE TOP OF HER LUNGS. DR. GILLIS NOTIFIED AND MEDICATION ORDERED. SON JUST HERE FOR VISIT AND TRYING TO FEED PT SOME PUREED FOOD SHE WANTS TO EAT. BILATERAL WRIST RESTRAINTS REMAIN IN PLACE FOR PT PROTECTION.
[2021-03-15 20:04] VITALS: BP 116/77
--- NOTE | 2021-03-16 04:18 | NUR ---
RECEIVED CARE OF THIS PATIENT AT 1900. PATIENT ALERT TO SELF ONLY. REMAINS IN RESTRAINTS AT THIS TIME. RELEASED FOR A FEW MINUTES Q2H. SKIN AND CIRCULATION REMAINS INTACT. DOES REACH FOR LINES AND TUBES WHEN RELEASED. IV PATENT WITH FLUIDS INFUSING. SMITH PATENT YELLOW URINE. ACCUCHECK AT CT WAS 160, RECEIVED 10 UNITS LISPRO INSULIN. FECAL MANAGEMENT SYSTEM WAS FOUND OUT, REPLACED. DENIES PAIN. SLEPT MOST OF NIGHT.
[2021-03-16 07:18] VITALS: BP 130/88
[2021-03-16 08:31] LABS: ALBUMIN 1.7 g/dL (3.4-5.0); CALCIUM 7.6 mg/dL (8.5-10.1); CREATININE 1.5 mg/dL (0.6-1.0); PHOSPHORUS 2.6 mg/dL (2.6-4.7); POTASSIUM 3.6 mmol/L (3.5-5.1)
--- NOTE | 2021-03-16 09:11 | NUR ---
ASSUMED PT CARE AROUND 0715. PT ALERT X ORIENTED XSELF. WAS ON 1L OF O2 /NC WHEN GOT THE REPORT, AROUND 0730 RT REMOVED NC STATING PT WAS ON 100% O2 SAT. NOW ON ROOM AIR.ACCUCHECK Q 6HRS. TOTAL CARE. IV TRIPPLE LUMEN, RT JUGULAR. TAKES MEDS CRUSHED WITH TEASPOON OF THICKENED LIQUID. SMITH IN PLACE AND FECAL MAMANGEMENT BAG IN PLACE. PT IS ON NON VIOLENT RESTRAINT. TRYING TO PULL OUT LINES AND TUBES. AT 0800, RESTRAINT RELEASED FOR FEW MINUTES. SKIN AND CIRCULATION INTACT. REACHING FOR LINES AND TUBES WHEN RELEASED. IV PATENT. RESTAINT DOCUMENTATION DID ON TIME. THERE WAS ORDER FOR ISOLATION CART AND C-DEFF SPECIMEN COLLECTION. STOOL SAMPLE COLLECTED AND SEND TO LAB BY RN. SINCE ISOLATION CVART ORDERED, PT WAS TRENSFERRED TO 4W ON ROOM 462. POLE LIFT OPERATOR AND PATIENT'S SON NOTIFIED. REPORT GIVEN TO SILVIA DIAZ.
[2021-03-16 18:31] VITALS: BP 126/78
--- NOTE | 2021-03-16 18:50 | NUR ---
PT ALERT TO SELF ONLY. VSS. SMITH TO DD. IVF INFUSING PER ORDER. PT DENIES PAIN/SOA. PT TOLERATES MEDS AMD MEALS. REMAINS IN ISOLATION FOR CDIFF. WILL CONTINUE TO MONITOR.
[2021-03-16 20:10] VITALS: BP 114/67
--- NOTE | 2021-03-17 05:03 | NUR ---
RECEIVED CARE OF THIS PATIENT AT 1900. PATIENT ORIENTED TO SELF ONLY. IV PATENT WITH FLUIDS INFUSING. ACCUCHECK AT [place] WAS 154. SLIDING SCALE WAS HELD D/T BS DROPPING YESTERDAY TO 26. ASSISTED LIVING MANAGER WAS INFORMED OF PATIENT'S YESTERDAY'S BS AND SAID TO HOLD SLIDING SCALE INSULIN. REMAIN IN ISO FOR C-DIFF. ONLY HAD ONE EPISODE OF LOOSE STOOL. DENIES PAIN. SLEPT MOST OF NIGHT.
[2021-03-17 05:35] LABS: HEMATOCRIT 22.7 % (37.0-47.0); HEMOGLOBIN 7.4 gm/dL (12.0-15.0); MCH 30.9 pg (26.0-34.0); MCHC 32.8 g/dL (28.0-37.0); RBC 2.41 mil/uL (4.20-5.00); RDW 14.5 % (10.5-14.5); WBC 12.1 thou/uL (4.0-11.0)
[2021-03-17 05:51] LABS: ALBUMIN 1.4 g/dL (3.4-5.0); CALCIUM 7.3 mg/dL (8.5-10.1); CREATININE 1.7 mg/dL (0.6-1.0); PHOSPHORUS 3.4 mg/dL (2.5-4.9); POTASSIUM 3.4 mmol/L (3.5-5.1)
[2021-03-17 08:34] VITALS: BP 107/60
--- NOTE | 2021-03-17 12:09 | NUR ---
MARTELL SPOKE WITH WILLIAM VEGA TO GET ORDER TO DC CVAD, NO LONGER ON IV MEDS.
--- NOTE | 2021-03-17 18:38 | NUR ---
ASSUMED PATIENT CARE AT 1030. ALERT CONFUSED AND IMPULSIVE. NO BM. VSS. NOT TOWARDS POC GOALS.
[2021-03-17 20:29] VITALS: BP 123/69
[2021-03-18 06:04] LABS: HEMATOCRIT 22.9 % (37.0-47.0); HEMOGLOBIN 7.5 gm/dL (12.0-15.0); MCH 31.1 pg (26.0-34.0); MCHC 32.8 g/dL (28.0-37.0); MCV 94.7 fL (80.0-100.0); RBC 2.42 mil/uL (4.20-5.00); WBC 11.7 thou/uL (4.0-11.0)
--- NOTE | 2021-03-18 06:07 | NUR ---
ASSUME CARE 1900. PT IS A/O TO SELF ONLY AND CAN COMMUNICATE SOME NEEDS. FORGETFULNESS AND CONFUSION NOTED. DENIES ANY PAIN. INCONTINENT TO BOWELS. PT HAS A SMITH WITH COPIOUS AMOUNT OF URINE NOTED THROUGH THE SHIFT. ASSESSMENT CHARTED. PROGRESSING MODERATELY WITH POC. NO DISTRESS NOTED THROUGH THE NIGHT. PLAN IS TO CONTINUE TO HYDRATE AND MANAGE ELECTROLYTE, WELL MANAGE CDIFF INFECTION. WILL CONTIUNE TO MONITOR AND FOLLOW WITH POC
[2021-03-18 06:15] LABS: ALBUMIN 1.4 g/dL (3.4-5.0); CALCIUM 7.9 mg/dL (8.5-10.1); CREATININE 1.8 mg/dL (0.6-1.0); MAGNESIUM 1.9 mg/dL (1.8-2.4); PHOSPHORUS 4.1 mg/dL (2.6-4.7)
[2021-03-18 07:37] VITALS: BP 116/67
--- NOTE | 2021-03-18 10:46 | NUR ---
Assumed pt care this am, very confused and impulsive. Received in report from the night nurse that pt had attempted several times to get of the bed. informed, sitter requested and is coming in at 11 am. Pt has had several bouts of diarrhea, sample sent to the lab. Hgb us 7.5, close monitoring thourough out the day. Pt constantly wants water but refused to eat, small frequent meals given through out the day, maintained on a pureed diet and nectar thick liquids.
--- NOTE | 2021-03-18 11:57 | NUR ---
CARE TEAM INDICATED PT IS MORE ALERT. PT DEMINSTRATING INCREASED IMPULSIVITY AND 1:1 SITTER HAS BEEN INITIATED THIS DAY. CLINICAL UPDATES WERE SENT TO [facility] THURSDAY. NURSE TO REACH OUT TO DON REGARDING MED WE AREN'T ABLE TO AQUIRE TO ADMINISTER HERE IN HOUSE. CM FOLLOWING REGARDING DC PLANNING.
[2021-03-18 19:30] VITALS: BP 121/79
--- NOTE | 2021-03-19 06:30 | NUR ---
Assumed pt care at 1900. A/O X1-2,able to voice needs at times,impulsive and confused keeps trying to get out of the bed. Sitter at the bedside. Constantly asking for water. "I need water" given nectar water/juice around the clock. Incontinent of bowels several times,loose (15 times) Rabago patent to DD with yellow urine. RIJ patent. Fall precauitons in place. Remains on cdiff isolation.
[2021-03-19 08:35] VITALS: BP 128/80
--- NOTE | 2021-03-19 11:52 | NUR ---
NURSE WAS ABLE TO REACH OUT TO GLENNA AT [facility] THIS DAY. HE IS TO PROVIDE LABS AND TO BRING THE PSYC MED THAT OUR PHARMACY ISN'T ABLE TO OBTAIN. PT WORKING WITH THERAPY. PT STILL WITH 1:1 SITTER. CM FOLLOWING REGARDING DC PLANNING.
--- NOTE | 2021-03-19 13:54 | NUR ---
Assumed pt care this am, still with a sitter d/t aggitation and impulsivity. Has had several bouts of diarhea. Still wanting to have water constantly and would cry out for it. Spoke to the DON of the [facility] where the pt is from, delivered medication Saphris 5 mg, total of 20 tablets as requested by Dr. Horn sending to pharmacy. AWaiting fax for the labs requested from the facility, fax number given. Awaiting instruction from Dr. Horn.
[2021-03-19 17:30] VITALS: BP 140/91
--- NOTE | 2021-03-19 20:17 | NUR ---
Assumed pt care this am, vs stable. 1:1 sitter at the bedside. Frequent bed baths and bed change done through out the shift for her diarrhea, ID and MD informed. Medications were adjusted as per emar, medications are crushed and given with pudding. Maintained on a pureed diet and nectar thick liquids. Medication received from the facility and was sent down to pharmacy, Dr. Horn informed, medication restarted. Awaiting for labs to be faxed since lady who delivered the medication stated she did not bring the labs and would fax. POC followed, endorsed to the night nurse.
[2021-03-20 00:30] VITALS: BP 109/40
[2021-03-20 05:05] VITALS: BP 108/76
--- NOTE | 2021-03-20 05:45 | NUR ---
Assumed pt care at 1900. A/OX 2-3,confused and impulsive. Sitter at the bedside. VSS.Pt has been incontinent of small BM x1 this shift. Excoriation/redness on buttocks,moisture barrier applied PRN. Remains on isolation for CDIFF. RIJ in place and patent. Rabago patent to DD with light yellow urine. Pt continues to frequently ask for water;nectar thick fluids provided to pt Intake 1450cc this shift. Fall precautions in place,will continue to monitor pt.
[2021-03-20 06:01] LABS: HEMATOCRIT 25.2 % (37.0-47.0); HEMOGLOBIN 8.2 gm/dL (12.0-15.0); MCH 31.2 pg (26.0-34.0); MCHC 32.5 g/dL (28.0-37.0); MCV 96.1 fL (80.0-100.0); RBC 2.62 mil/uL (4.20-5.00); RDW 15.8 % (10.5-14.5); WBC 10.6 thou/uL (4.0-11.0)
[2021-03-20 06:18] LABS: CALCIUM 9.1 mg/dL (8.5-10.1); POTASSIUM 4.6 mmol/L (3.5-5.1)
[2021-03-20 08:30] VITALS: BP 149/83
--- NOTE | 2021-03-20 15:03 | NUR ---
CARE TEAM INDICATED THAT PT'S STOOLS ARE DECREASING AND THAT SHE MAY BE MEDICALLY STABLE TO DC BACK TO [facility] TOMORROW. CM CALLED AND LEFT FOR DON INDICATING THE ABOVE. UPDATED CLINICAL FAXED TO THE COMMUNITY. CM REQUESTED THAT COVID TEST BE DONE THIS EVENING IN PREPERATION FOR DC TOMORROW. CM FOLLOWING REGARDING PROBABLE DC TOMORROW.
--- NOTE | 2021-03-20 15:51 | NUR ---
FAXED CLINICAL UPDATES AND THERAPY NOTES TO [facility]. NOTED ANTICIPATED D/C TOMORROW, 03/21/21. WILL CONFIRM WITH [facility] THAT THEY RECEIVED. [facility] Tse [phone]; [phone]
[2021-03-20 16:53] VITALS: BP 138/78
--- NOTE | 2021-03-20 17:48 | NUR ---
Assumed pt care at 7am.Pt in bed sleeping on and off but yells out most ot the times asking for water or tea.Assessment completed.vss.Blood sugar stable. Sitter in room at alltimes,assisting with care.Dr Williamson here stated that pt will be dc to [facility] in am.Pt took all meds and tolerated diet.Complete bath and bed change done by tree doctor later this evening.Fall bundle in place.Will continue to monitor.
[2021-03-20 19:06] VITALS: BP 126/96
--- NOTE | 2021-03-21 06:31 | NUR ---
PATIENT AOX1 CONFUSED AND FORGETFUL. PATIENT IS ON FLUID RESTRICTION.CATH CARE DONE. PERICARE AND BARRIER CREAM APPLIED NEEDED. PATIENT IS ON 1:1 FOR SAFETY. PATIENT CALM AND COOEPRATIVE WITH CARE AND MEDS. PATIENT IN BED ASLEEP AT THIS TIME BREATHING REGULAR AND UNLABOURED.
[2021-03-21 08:00] VITALS: BP 118/81
[2021-03-21] MEDS ORDERED: VANCOMYCIN HCL250 MG PO (13:44)
--- NOTE | 2021-03-21 15:51 | NUR ---
FAXED DISCHARGE ORDERS AND SUMMARY TO [facility]. WILL CONFIRM WITH [facility] THAT THEY RECEIVED. TRANSPORTATION TO BE ARRANGED. [facility] P [phone]; FAX [phone]
--- NOTE | 2021-03-21 15:55 | NUR ---
CARE TEAM INDICATED THAT PT IS MEDICALLY STABLE TO DC BACK TO [facility] THIS DAY. CM SPOKE WITH ADREIL AND HE IS AWARE AND AGREEABLE. CHART COPY MADE. ORDERES FAXED. CM NOTIFEID PT'S SON HE IS ALSO AWARE AND AGREEABLE. FACILITY TO PICK PT UP VIA [facility]. NURSE HAS NUMBER FOR REPORT. NO OTHER CM INTERVENTION INDICATED. CASE CLOSED.
--- NOTE | 2021-03-21 16:30 | NUR ---
Assumed pt care at 7am.Pt in bed yelling as usual for water and tea to drink at alltimes.Sitter in room for safety and prevent fall.Assessment completed. vss.Meds given as ordered and well tolerated.Dr Williamson here,dc order noted. senior facilities manager assisted with dc planning and transport. Dc summary compile and chart copy done.Explosion Welder assisted with dressing.Attempted to call report to [place] [phone] but no one answer the phone.At 1630,pt dc per van to [facility] in stable condition. Pt home meds sent with her.
== END 2021-03-21 16:21 | DRG 871 ==
LOC: ER 16:36 → ICU 19:03 → EROBS 19:03 → ICU 19:17 → 4W 03-03 16:01 → ICU 03-06 13:05 → 2N 03-13 02:00 → 4S 03-14 19:02 → 4W 03-16 08:54
PROVIDERS: Hospitalist; Internal Medicine; Internal Medicine Nephrology; Nurse Practitioner; Pediatrics; Specialist; ADMIT Hospitalist; ATTEND Hospitalist
PROC: 5A09457 Assistance with Respiratory Ventilation, 24-96 Consecutive Hours, Continuous Positive Airway Pressure (ICD-10-PCS; principal; 2021-03-06)
PROC: 02HV33Z Insertion of Infusion Device into Superior Vena Cava, Percutaneous Approach (ICD-10-PCS; principal; 2021-03-06)
PROC: B01B1ZZ Fluoroscopy of Spinal Cord using Low Osmolar Contrast (ICD-10-PCS; 2021-03-07)
PROC: 009U3ZX Drainage of Spinal Canal, Percutaneous Approach, Diagnostic (ICD-10-PCS; 2021-03-07)
PROC: 5A09357 Assistance with Respiratory Ventilation, Less than 24 Consecutive Hours, Continuous Positive Airway Pressure (ICD-10-PCS; 2021-03-08)
DX: A41.9 Sepsis, unspecified organism (principal); J96.01 Acute respiratory failure with hypoxia; N17.0 Acute kidney failure with tubular necrosis; G92 Toxic encephalopathy; J69.0 Pneumonitis due to inhalation of food and vomit; E46 Unspecified protein-calorie malnutrition; E87.1 Hypo-osmolality and hyponatremia; N39.0 Urinary tract infection, site not specified; I47.1 Supraventricular tachycardia; C94.6 Myelodysplastic disease, not elsewhere classified; A04.72 Enterocolitis due to Clostridium difficile, not specified as recurrent; F41.9 Anxiety disorder, unspecified; R65.20 Severe sepsis without septic shock; F17.210 Nicotine dependence, cigarettes, uncomplicated; F32.9 Major depressive disorder, single episode, unspecified; E86.0 Dehydration; E78.5 Hyperlipidemia, unspecified; I25.10 Atherosclerotic heart disease of native coronary artery without angina pectoris; E03.9 Hypothyroidism, unspecified; E87.5 Hyperkalemia; F20.9 Schizophrenia, unspecified; T56.891A Toxic effect of other metals, accidental (unintentional), initial encounter; B96.20 Unspecified Escherichia coli [E. coli] as the cause of diseases classified elsewhere; D69.6 Thrombocytopenia, unspecified; Z20.822 Contact with and (suspected) exposure to COVID-19; E83.52 Hypercalcemia; R13.10 Dysphagia, unspecified; R41.0 Disorientation, unspecified; I95.9 Hypotension, unspecified; E87.6 Hypokalemia; Z68.25 Body mass index [BMI] 25.0-25.9, adult; Y92.89 Other specified places as the place of occurrence of the external cause; Z88.8 Allergy status to other drugs, medicaments and biological substances; Z79.82 Long term (current) use of aspirin; Z79.899 Other long term (current) drug therapy
CPT/HCPCS: 10045; 10047; 10078; 10081; 10100; 10203

== ENCOUNTER 2021-03-25 15:56 | Inpatient (IN) | payer OTHER ==
[~2021-03-25] VITALS: Ht 167.6 cm; Wt 75.8 kg
--- NOTE | ~2021-03-25 | EMS ---
[address] [address] EMS Patient Care Report Name: RODOLFO PINTO Room #: REG ELI Carey#: [id number] Admission: 03/25/21 Attend Phys: Discharge: Date of : 57 Report #: [id number] THIS REPORT FOR: //name// Report Transmitted: 03/25/2021 16:37 EMS Care Summary [place], [place]/[facility] Incident [id number] @ 03/25/2021 15:18 Incident Location [address] [place] [address] Patient RODOLFO PINTO Female, 66 Years 1955 Patient Address [address] [place], [place] [id number] Patient History Hyperlipidemia,Urinary Tract Infection (UTI),Bipolar II Disorder,Sepsis,Hypothyroidism, Patient Allergies Penicillin allergy,Haldol, Patient Medications Lipitor, Oxybutynin, Aspirin, Sh[place], Klonopin, Mirtazapine, Chief Complaint EXPLOSIVE DIARRHEA Disposition Transported No Lights/[place] Dispatch Reason Abdominal Pain/Problems Transported To [facility] Narrative M36 ARRIVES TO FIND 66 YEAR OLD FEMALE PT COMPLAINING OF EXPLOSIVE DIARRHEA. PT HAD BEEN EXPERIENCING THIS FOR APPROXIMATELY 2 DAYS PRIOR TO EMS BEING CALLED. [address] [address] EMS Patient Care Report Name: RODOLFO PINTO Room #: REG Lyle#: [id number] Admission: 03/25/21 Attend Phys: Discharge: Date of : 57 Report #: [id number] VITALS TAKEN. PT WAS AMBULATORY AND ABLE TO WALK TO THE COT, WHERE SEAT BELTS WERE APPLIED. PT WAS TRANSPORTED TO [facility] WITHOUT ANY CHANGE. PT WAS AMBULATORY UPON ARRIVAL WHERE SHE WALKED FROM THE COT TO THE ER BED. REPORT GIVEN TO NURSE. Initial Vitals @15:44P: 91,R: 15,BP: 106/73,Pain: 2/10,GCS: 15,Glucose: 154,CO: 0,SpO2: 99,Revised Trauma: 12, @15:38P: 106,R: 15,BP: 113/80,Pain: 2/10,GCS: 15,Glucose: 154,Revised Trauma: 12, Assessments @16:08MENTAL:Person Oriented,Time Oriented,Place Oriented,Event Oriented,SKIN:HEENT:LUNG SOUNDS:General: Diarrhea,Left Upper: No Abnormalities,Right Upper: No Abnormalities,Left Lower: No Abnormalities,Right Lower: No Abnormalities,ABDOMEN:General: Diarrhea,Left Upper: No Abnormalities,Right Upper: No Abnormalities,Left Lower: No Abnormalities,Right Lower: No Abnormalities,PELVIS//GI:No Abnormalities,EXTREMITIES:Capillary Refill: Right Upper: < 2 Sec,Left Arm: No Abnormalities,Right Arm: No Abnormalities,Left Leg: No Abnormalities,Right Leg: No Abnormalities,PULSE:Radial: 2+ Normal,NEURO:No Abnormalities,@15:50MENTAL:No Abnormalities,SKIN:No Abnormalities,HEENT:Head/Face: No Abnormalities,Eyes: No Abnormalities,Neck/Airway: No Abnormalities,LUNG SOUNDS:General: Diarrhea,Left Upper: No Abnormalities,Right Upper: No Abnormalities,Left Lower: No Abnormalities,Right Lower: No Abnormalities,ABDOMEN:General: Diarrhea,Left Upper: No Abnormalities,Right Upper: No Abnormalities,Left Lower: No Abnormalities,Right Lower: No Abnormalities,PELVIS//GI:No Abnormalities,EXTREMITIES:Left Arm: No Abnormalities,Right Arm: No Abnormalities,Left Leg: No Abnormalities,Right Leg: No Abnormalities,PULSE:NEURO:No Abnormalities, Impression Diarrhea Procedures @15:36BLS AssessmentResponse: Unchanged Timeline 15:16,Call Received 15:16,Dispatch Notified 15:18,Dispatched 15:18,En Route 15:28,On Scene 15:36,At Patient 15:36,BLS Assessment,Response: Unchanged 15:38,BP: 113/80 M,PULSE: 106,RR: 15 R,SPO2: Ox,ETCO2: ,B,PAIN: 2,GCS: [address] [address] EMS Patient Care Report Name: RODOLFO PINTO Room #: REG [facility].#: [id number] Admission: 03/25/21 Attend Phys: Discharge: Date of : 57 Report #: [id number] 15, 15:44,BP: 106/73 M,PULSE: 91,RR: 15 R,SPO2: 99 Ox,ETCO2: ,B,PAIN: 2,GCS: 15, 15:46,Depart Scene 15:53,At Destination 16:11,Call Closed Disclaimer v1.1 Copyright 202 [employer] This EMS Care Summary contains data elements from the applicable legal record (which may be displayed differently). It is designed to provide pertinent information for the following purposes: continuity of care, clinical quality, and state data reporting. The complete legal record is available to ED staff and administrators of the receiving hospital in [employer]'s Patient Tracker. All data is provided "as is."
[~2021-03-25 15:56] MED LIST changes: +ASA81BEC PO; +BISMATROL525 MG/15 PO; +CHILDREN'S ZYRT10 M1 PO; +COLACE100 MG PO; +DESYREL150 MG PO; +FUROSEMIDE 20 M20 MG PO; +KLONOPIN0.5 MG PO; +LEVO-T100 MCG PO; +LIPITOR10 MG PO; +LITHIUM CARBON300 M7 PO; +MELOXICAM7.5 MG PO; +MIRTAZAPINE7.5 MG PO; +OXYBUTYNIN 5 MG5 M1 PO; +ROPINIROLE HCL0.5 MG PO; +SAPHRIS5 MG DISSOLVE; +SENEXON-S 50-81 EACH PO; +SLOW FE142 MG PO; +VANCOMYCIN HCL250 MG PO; +VITAMIN C500 M2 PO
[2021-03-25 15:57] VITALS: BP 148/77
[2021-03-25 16:20] LABS: HEMOGLOBIN 6.6 gm/dL (12.0-15.0); MCV 93.3 fL (80.0-100.0); WBC 4.9 thou/uL (4.0-11.0)
[2021-03-25 16:22] LABS: ABSOLUTE NEUTROPHILS 4.2 thou/uL (1.4-8.2); BASOPHILS 0.5 % (0.0-2.0); EOSINOPHILS 2.8 % (0.0-3.0); LYMPHOCYTES 5.2 % (24.0-44.0); MCH 30.8 pg (26.0-34.0); PLATELET COUNT 175 thou/uL (150-400); POLYS 85.5 % (36.0-66.0); RBC 2.14 mil/uL (4.20-5.00)
[2021-03-25 16:27] LABS: CALCIUM 7.5 mg/dL (8.5-10.1); CREATININE 2.7 mg/dL (0.6-1.0); POTASSIUM 4.4 mmol/L (3.5-5.1)
[2021-03-25 16:33] LABS: ALBUMIN 1.6 g/dL (3.4-5.0); TOTAL BILIRUBIN 0.2 mg/dL (0.2-1.0); TOTAL PROTEIN 4.8 g/dL (6.4-8.2)
[2021-03-25 20:14] VITALS: BP 124/68
--- NOTE | 2021-03-25 20:26 | NUR ---
Called for report but was told SILVIA Wu in a pt's room and would call back
[2021-03-25 21:00] VITALS: BP 95/50
[2021-03-25 21:30] VITALS: BP 106/65
[2021-03-26 05:00] VITALS: BP 106/65
--- NOTE | 2021-03-26 07:51 | NUR ---
ASSUME CARE 1900. PT/VITALS STABLE. DENIES ANY PAIN. PT IS A/O TO PERSON AND POLACE. FORGETFUL AND NEEDS REDIRECTION. CALLS OUT HER NEEDS MOSTLY. COOPERATIVE WITH CARE/PLEASANT. HGB 6.6 ON ADMISSION. 1 UNIT OF BLOOD ORDERED, HOWEVER, PAPO IS DRUZE AND CANNOT GET BLOOD. SON, SOY, INDICATED THIS AND PT CONFIRMED SHE CANNOT RECEIVE BLOOD. ASSESSMENTS CHARTED. MODERATE PROGRESS WITH POC. PLAN IS TO CONTINUE WITH ABX THERAPY FOR CDIFF. WILL CONTINUE TO MONITOR AND FOLLOW WITH POC
[2021-03-26 12:59] VITALS: BP 106/62
--- NOTE | 2021-03-26 13:08 | NUR ---
MARTHA AT [facility] CONTACTED AND INQUIRED ABOUT PATIENT PREVIOUS COLONOSCOPY RECORDS OR ANY OTHER FACILITY THAT SHE MIGHT HAVE BEEN TOO. INFORMED SHE HAS NO COLONOSCOPY RECORDS AND SHE HAS NOT BEEN TO ANY OTHER FACILITY. CALLED LEAH AYALA AND NOTIFIED HER OF INFORMATION. NO NEW ORDERS RECIEVED.
--- NOTE | 2021-03-26 14:40 | NUR ---
Assessment completed w/ MARTHA Meyer [phone] at [facility]. Pt currently in isoated room and admitted for anemia, C-diff. NOK: Collins Hutton [phone] & [phone] Insurance: Medicaid of [place] PCP: Reece Siglaa ADL: Facility to assist Pt discharged from [facility] on 03/21 and had no current living changes. D/C plan: Return to [facility], this SW to send referral on this day
[2021-03-26 14:43] VITALS: BP 133/82
[2021-03-26 16:10] LABS: HEMOGLOBIN 6.5 gm/dL (12.0-15.0); MCH 31.2 pg (26.0-34.0); RBC 2.09 mil/uL (4.20-5.00); WBC 3.8 thou/uL (4.0-11.0)
[2021-03-26 16:11] LABS: MCHC 33.5 g/dL (28.0-37.0); MCV 93.4 fL (80.0-100.0); RDW 15.1 % (10.5-14.5)
[2021-03-26 16:21] LABS: HEMATOCRIT 19.5 % (37.0-47.0)
[2021-03-26 19:15] VITALS: BP 112/66
[2021-03-27 02:33] LABS: MCH 30.8 pg (26.0-34.0); MCV 93.2 fL (80.0-100.0); RBC 1.85 mil/uL (4.20-5.00); RDW 15.1 % (10.5-14.5)
[2021-03-27 02:37] LABS: HEMATOCRIT 17.2 % (37.0-47.0); HEMOGLOBIN 5.7 gm/dL (12.0-15.0)
[2021-03-27 02:57] VITALS: BP 96/65
--- NOTE | 2021-03-27 05:30 | NUR ---
PT SLEPT MOST OF THE NIGHT. RESPIRATIONS EVEN AND UNLABORED. SHE WAS INCONTINENT OF BOWEL AND BLADDER MULTIPLE TIMES DURING THE NIGHT. SHE WAS OCCASSIONALLY IMPULSIVE IN GETTING OUT OF BED TO GO TO BTR. PT CONTINUES TO HAVE LOOSE STOOLS. C/O ABDOMINAL PAIN BUT DID NOT REQUEST ANY PAIN MEDICATION. DENIED N/V. CRITICALLY LOW HGB/HCT RESULTS CALLED TO DR PIERCE. ORDER RECEIVED TO CONSULT HEMATOLOGY LATER THIS MORNING PT IS ANEMIC BUT A MANDAEN AND CANNOT HAVE BLOOD TRANSFUSIONS. NOT PROGRESSING WELL TOWARD POC GOALS. WILL MONITOR FURTHER.
[2021-03-27 07:07] LABS: URINE BILIRUBIN NEGATIVE (Negative); URINE BLOOD 3+ (Negative); URINE CLARITY CLOUDY; URINE COLOR YELLOW; URINE GLUCOSE-RANDOM* NEGATIVE (Negative); URINE KETONES NEGATIVE (Negative); URINE LEUKOCYTES-REFLEX 3+ (Negative); URINE NITRITE-REFLEX NEGATIVE (Negative); URINE PROTEIN (DIPSTICK) 2+ (Negative); URINE SPECIFIC GRAVITY <= 1.005 (1.005-1.035); URINE UROBILINOGEN 0.2 E.U./dl (0.2-1.0)
[2021-03-27 07:24] LABS: CASTS None Seen /LPF (None Seen); SQUAMOUS 4-10 Moderate /LPF (0-3)
[2021-03-27 07:25] LABS: URINE WBC-REFLEX >25 Many /HPF (0-5)
[2021-03-27 07:26] LABS: BACTERIA-REFLEX 1-9 Few /HPF (None Seen); CRYSTALS None Seen /LPF (None Seen); URINE RBC 1-2 Rare /HPF (NONE SEEN); WBC CLUMPS Few (None Seen); YEAST-REFLEX Present (None Seen)
[2021-03-27 07:50] LABS: % SATURATION 12 % (20-39); IRON 12 ug/dL (50-170); TIBC 102 ug/dL (250-450)
[2021-03-27 08:11] LABS: FOLIC ACID 15.6 ng/mL (8.6-58.9)
[2021-03-27 08:25] VITALS: BP 97/65
[2021-03-27 08:52] LABS: ABSOLUTE RETIC COUNT 0.0602 10^6/uL; OBSERVED RETIC COUNT 3.22 % (0.6-2.6)
[2021-03-27 15:13] VITALS: BP 128/82
[2021-03-27 15:56] VITALS: BP 141/67
[2021-03-27 19:07] LABS: IgA 105 mg/dL (87-352); IgG 528 mg/dL (586-1602); IgM 54 mg/dL (26-217)
--- NOTE | 2021-03-27 19:21 | NUR ---
AT APPROX. 1430 THE CHARGE NURSE INFORMED ME THAT WHILE SHE WAS HELPING THE PATIENT THE PATIENT EXPRESSED SHE WANTED A BLOOD TRANSUFSION. I ASK THE PATIENT IF SHE WANTED A BLOOD TRANSUFSION AND SHE SAID YES, SHE DIDNT WANT TO . I ASKED IF SHE WAS JAHOVA WITNESS AND SHE RESPONED YES. WHEN I ASKED HER ABOUT TAKING BLOOD WITH HER RELIGON PREFERENCE SHE SAID "THEY WOULD MAKE AN ALLOWANCE, IM DYING HERE". CALLED SON (DPOA) AND INFORMED HIM OF THE CONVERSATION I HAD WITH THE PATIENT. THE SON SAID IF SHE WAS MAKING SOUND MIND DECISIONS AND WASNT CONFUSED TO GIVE HER BLOOD THAT "SHE WOULD HAVE TO DEAL WITH HER DECISIONS" OTHERWISE HE WOULD HONOR HER WISHES. CALLED DR. RAMESH AND NOTIFIED HIM OF THIS CONVERSATION BETWEEN PATIENT AND SON. DR. RAMESH STATED HE WOULD CALL AND TALK TO THE SON AND WILL CALL ME BACK.
--- NOTE | 2021-03-27 19:37 | NUR ---
AT APPROX. 1800 DR[address] RAMESH CALLED ME STATING THAT HE HAD TALKED TO THE SON AND THE SON STATED HE KNEW THE PATIENT WAS NOT A SUPER DEVOTE JEHOVAS WITNESS AND THAT IN A LIFE OR SITUATION THE PATIENT MIGHT CHANGE HER MIND. DR. RAMESH ASK ME TO TALK TO THE PATIENT AGAIN. I WENT INTO THE ROOM AND ASK THE PATIENT AGAIN IF SHE WANTED A BLOOD TRANSFUSION AND SHE SAID YES. I ASKED THE PATIENT WHAT DOES A BLOOD TRANSFUSION MEAN SHE STATED "IT MEANS PUTTING OTHER PEOPLES BLOOD IN MY BODY". I INFORMED DR. RAMESH OF WHAT THE PATIENT SAID TO ME, HE STATED HE WOULD PUT IN ORDERS.
[2021-03-27 19:38] VITALS: BP 135/80
[2021-03-27 21:52] VITALS: BP 101/63; BP 104/69; BP 106/67
--- NOTE | 2021-03-28 00:01 | NUR ---
PT GIVEN [address] ORDER. PT TOLERATED WELL. NO S/S REACTION NOTED. VSS. TYLENOL WAS GIVEN PRIOR TO TRANSFUSION. PT RESTING QUIETLY IN BED AT THIS TIME.
[2021-03-28 07:51] LABS: ALBUMIN 1.7 g/dL (3.4-5.0); CREATININE 1.9 mg/dL (0.6-1.0); MAGNESIUM 1.8 mg/dL (1.8-2.4); POTASSIUM 4.9 mmol/L (3.5-5.1); TOTAL BILIRUBIN 0.3 mg/dL (0.2-1.0); TOTAL PROTEIN 4.8 g/dL (6.4-8.2)
[2021-03-28 07:52] LABS: HEMATOCRIT 28.1 % (37.0-47.0); MCH 30.8 pg (26.0-34.0); MCHC 33.1 g/dL (28.0-37.0); MCV 93.2 fL (80.0-100.0); RBC 3.02 mil/uL (4.20-5.00); RDW 16.1 % (10.5-14.5); WBC 4.7 thou/uL (4.0-11.0)
[2021-03-28 08:25] VITALS: BP 128/83
[2021-03-28 09:20] LABS: HEMOGLOBIN 9.3 gm/dL (12.0-15.0)
--- NOTE | 2021-03-28 10:21 | NUR ---
PT IN BED, ASSESSMENT PERFORMED. PT YELLS OUT FREQUENTLY FOR WATER AND BLANKETS DESPITE HOW MANY BLANKETS AND WATER SHE IS GIVEN. FREQUENT ROUNDING DUE TO PATIENT INCONTINENT OF BOWEL. PT STATES SHE WANTS TO FEEL BETTER. VSS. WILL CONTINUE TO MONITOR AND FOLLOW POC.
--- NOTE | 2021-03-28 11:15 | NUR ---
Possible dc back to [facility] tomorrow. DON/admissions notified and clinical update faxed.
--- NOTE | 2021-03-28 11:48 | NUR ---
PT RESTING AT THIS TIME. WARM BLANKET AND DRINK OF WATER PROVIDED. PT INCONTINENT OF BOWEL AND URINE, PT CLEANED UP BY RN. VSS. WILL CONTINUE TO MONITOR AND FOLLOW POC.
--- NOTE | 2021-03-28 16:15 | NUR ---
PT IN BED, PT SHOUTING FOR WATER, PT GIVEN WATER, CHECKED FOR INCONTINENCE AND CHANGED BRIEF AND BEDDING. VSS. WILL CONTINUE TO MONITOR AND FOLLOW POC.
[2021-03-28 17:12] VITALS: BP 123/90
[2021-03-28 20:15] VITALS: BP 128/96
[2021-03-29 02:38] LABS: HEMATOCRIT 22.5 % (37.0-47.0); HEMOGLOBIN 7.5 gm/dL (12.0-15.0); MCH 30.6 pg (26.0-34.0); MCHC 33.2 g/dL (28.0-37.0); MCV 92.4 fL (80.0-100.0); RBC 2.44 mil/uL (4.20-5.00); RDW 15.9 % (10.5-14.5); WBC 4.9 thou/uL (4.0-11.0)
[2021-03-29 03:29] LABS: CALCIUM 7.7 mg/dL (8.5-10.1); CREATININE 1.8 mg/dL (0.6-1.0); MAGNESIUM 1.6 mg/dL (1.8-2.4); POTASSIUM 4.4 mmol/L (3.5-5.1)
[2021-03-29 03:53] VITALS: BP 135/86
--- NOTE | 2021-03-29 05:55 | NUR ---
PT STILL HAVE MULTIPLE BOUTS OF BOWEL INCONTINENCE. MULTIPLE BED CHANGES. PT CAN HELP ROLL HERSELF. PT ASK FREQUENTLY FOR WATER. LABS SHOW HgB DROPPING AGAIN. VSS AND TELE SHOWS SR.
[2021-03-29 08:00] VITALS: BP 139/77
--- NOTE | 2021-03-29 08:12 | HC ---
[facility] [place] [address] CONSULTATION Name: RODOLFO PINTO Room #: 217-P ADM IN M.R.#: [id number] Admission: 03/25/21 Attend Phys: See Benitez MD Discharge: Date of : 57 Report #: [id number] THIS REPORT FOR: cc: Reece Sigala MD, Dennis R MD McKittrick, Richard James MD ~ DOC #: [id number] cc: MD Bairon Hwang MD DATE OF SERVICE: 03/27/2021 REQUESTING PHYSICIAN: See Benitez MD REASON FOR CONSULTATION: Anemia. HISTORY OF PRESENT ILLNESS: The patient is a 66-year-old Shinto, who had been in the hospital, seen about 03/16 for C. diff. At the nursing facility, she was found to have a low hemoglobin. Here it was found to be 6.6, today 5.7. Since her anabaptism preference is not to receive transfusion, she has not been transfused. We note that her creatinine is elevated, previously it had been below 2, it is currently 2.7. Her albumin is 1.6, total bilirubin 0.2. B12 recently 1001, recent TSH 1.85. Note that UA is pending. Also, note on recent lab a monoclonal protein was possibly seen on her serum protein electrophoresis at 0.2. The patient is lying in bed. She is a bit disheveled, little bit loud voice, little ____ but pleasant and answers questions. Denies any specific pain. Does have a little bit of stomach discomfort, but it is probably from the diarrhea. No nausea, no vomiting. She does mention she sees blood on the toilet paper when she wipes. She thinks it is from the rectal or the anorectal area, not the vaginal area. She is not aware of any skin rash. She is not aware of any lymph nodes, any unexplained fevers, chills or sweats. PAST MEDICAL HISTORY: Notable for the recent C. diff infection. She is a resident of a care facility. She has a history of bipolar disease and schizophrenia, reported coronary artery disease, hypothyroidism. SOCIAL HISTORY: Used to drink 2 or 3 beers a night. Smoker in the past. I do not think she admitted to any street drugs, is a Shinto. FAMILY HISTORY: Noncontributory, though she did mention that one of her sons is getting out of fpc soon, being convicted of robbing a bank. MEDICATIONS: Described by the patient currently include the levothyroxine 125 mcg daily, Saphris 5 mg b.i.d., oxybutynin 5 mg at bedtime, ropinirole 0[place]5 [place] [address] CONSULTATION Name: RODOLFO PINTO Cecilio Room #: 217-P [facility] IN .R.#: [id number] Admission: 03/25/21 Attend Phys: See Benitez MD Discharge: Date of : 57 Report #: [id number] bedtime, trazodone 100 at bedtime, mirtazapine 7.5 at bedtime, vitamin C 500 daily, lithium carbonate 300 b.i.d., clonazepam 0.5 t.i.d., acidophilus 1 packet b.i.d., vancomycin 125 mg q.i.d., metronidazole IV, Zofran p.r.n. PHYSICAL EXAMINATION: GENERAL: The patient is on a med/surg bed, somewhat disheveled, but answers questions a bit loudly and rashly. VITAL SIGNS: Recent height is 5 feet 6 inches or 167.6 cm. Weight 161 or 164 pounds, which is around 74.8 kg. HEENT: Face is symmetrical. Mood: She is talkative and to the point. NECK: No enlarged lymph nodes in the supraclavicular or cervical region. LUNGS: Appear to be clear, anterior and posterior without any rhonchi, rales or wheezes. HEART: Regular rate. ABDOMEN: Slightly obese, maybe mildly tender, related to the C. diff. LABORATORY DATA: Here as mentioned above. ASSESSMENT AND PLAN: 1. Normocytic anemia. Suspect this may be related to renal insufficiency. We will check iron panel, folate, erythropoietin, retic count. Also, UA is pending to make sure she is not losing blood. I doubt that she is hemolyzing since her bilirubin is normal and I am not strongly suspicious of bone marrow condition since her white count and platelet counts are within her usual range. We will await these results and if her erythropoietin is inappropriately low we would consider administration. If she is iron deficient, we would replace. 2. Renal insufficiency, creatinine of 2.7, may be related to anemia. We will check. We will defer management of kidney disease to others. 3. Abnormal SPEP protein of 0.2. We will check an sIFE and a serum free light chain ratio. Note that recent CT scans have not mentioned any lytic changes or any adenopathy of note. 4. Recent Clostridium difficile infection, on metronidazole and vancomycin. 5. Bipolar and schizophrenia, multiple meds per others. 6. History of coronary artery disease on the chart per others. 7. Hypothyroid replacement. We will follow with you. MD LAKE Chou/JUSTEN/JAY <ELECTRONICALLY SIGNED> By: Bairon Del Rosario MD 03/29/21 0812 0715 [id number] Bairon Del Rosario MD /nt
--- NOTE | 2021-03-29 12:30 | NUR ---
FAXED CLINICAL UPDATES WITH NEGATIVE COVID RESULT (03/20) TO [facility] P [phone]; FAX [phone]
--- NOTE | 2021-03-29 13:25 | NUR ---
VAT CONSULTED FOR PIV. THIS RN ASSESSED BILATERAL ARMS WITH US. PT FOREARM VESSELS EXTREMELY TINY, NO SUPERFICIAL VESSELS NOTED. THIS PT WILL NEED PICC LINE FOR ACCESS. SPOKE WITH SILVIA HASTINGS.
[2021-03-29 15:26] LABS: HEMATOCRIT 23.7 % (37.0-47.0); HEMOGLOBIN 7.7 gm/dL (12.0-15.0)
[2021-03-29 15:30] VITALS: BP 132/82
--- NOTE | 2021-03-29 17:28 | NUR ---
Possible dc back to ltc tomorrow discussed with the Admin at [facility] this am. Clinical update refaxed to him. He is agreeable to weekend admission if pt is dc ready. Weekend staff will need to call the building and ask for the manager access on duty or DON [phone]. DC summary and orders need to be faxed to [phone]. A fax cover sheet is on the front of the chart. They can not provide transport over the weekend. RN to call [facility] per cm w/c or stretcher transport as needed to facilite dc [phone]. Pt's son Chino to be updated and confirm dc with him at [phone] or [phone]. Pt got one unit of blood but still with low hgb,montioring. Urine cultures pending for recommendations on atb at dc.
--- NOTE | 2021-03-29 17:57 | NUR ---
ASSESSMENT CHARTED. PT ALERT TO SELF. HAD THREE EPISODE OF DIARRHEA THIS SHIFT. CONTACT ISOLATION MAINTAINED. APPETITE GOOD. NO CONCERNS AT THIS TIME.
[2021-03-29 21:30] VITALS: BP 107/65
[2021-03-30 04:15] LABS: ALBUMIN 1.4 g/dL (3.4-5.0); CREATININE 1.8 mg/dL (0.6-1.0); MAGNESIUM 1.7 mg/dL (1.8-2.4); PHOSPHORUS 2.6 mg/dL (2.5-4.9); POTASSIUM 4.4 mmol/L (3.5-5.1); TOTAL BILIRUBIN 0.2 mg/dL (0.2-1.0); TOTAL PROTEIN 4.4 g/dL (6.4-8.2)
[2021-03-30 04:22] LABS: HEMATOCRIT 23.6 % (37.0-47.0); HEMOGLOBIN 7.7 gm/dL (12.0-15.0); MCH 30.3 pg (26.0-34.0); MCHC 32.6 g/dL (28.0-37.0); MCV 92.8 fL (80.0-100.0); PLATELET COUNT 255 thou/uL (150-400); RBC 2.54 mil/uL (4.20-5.00); RDW 16.6 % (10.5-14.5); WBC 4.5 thou/uL (4.0-11.0)
[2021-03-30 04:45] VITALS: BP 133/88
[2021-03-30 05:28] LABS: ABSOLUTE NEUTROPHILS 3.6 thou/uL (1.4-8.2); ANISOCYTOSIS 1+
[2021-03-30 08:19] VITALS: BP 122/76
[2021-03-30] MEDS ORDERED: CEFUROXIME250 MG PO (13:28)
[2021-03-30] MEDS ORDERED: FLORANEX GRANU1 EACH PO (13:29)
[2021-03-30] MEDS ORDERED: CHILDREN'S15 MG/1 M2 PO (13:31)
--- NOTE | 2021-03-30 14:24 | NUR ---
CHONG informed by NOD that LTC facility [facility] did not answer phone. CHONG contacted Mitch THOMAS [phone] after this CHONG attempted to call provided number to building per conversation that CM had w/ Mitch on 03/29. When this SW spoke w/ Mitch he advised that he cannot accept pt on this day as there is no admitting nurse to accept pt back on this day. Indira advised that he can complete the admission on 03/31 as early as possible. CHONG will set transport w/ [facility] [phone] for p/u on 03/31 for 1000. CHONG advised medical team of said information. CHONG contacted pt's son Chino twice on this day to inform of potential D/C on this day and left a w/ a callback number [phone] to this SW. NOD to call report on 03/31 to MARTHA at [facility] [phone]. Mitch advised on transport time for pt on 03/31. SW to provide D/C summary, instructions, and final med list to LT via fax.
[2021-03-30 16:06] LABS: KAPPA FREE LIGHT CHAINS 95.5 mg/L (3.3-19.4); KAPPA/LAMBDA RATIO 1.69 (0.26-1.65); LAMBDA FREE LIGHT CHAINS 56.6 mg/L (5.7-26.3)
[2021-03-30 16:57] VITALS: BP 132/82
--- NOTE | 2021-03-30 17:52 | NUR ---
PT ALERT TO SELF. APPETITE GREAT. NO EPISODE OF DIARRHEA THIS SHIFT. CONTACT ISOLATION MAINTAINED. DISCHARGE TO FACILITY @ 10:00 AM IN THE MORNING. NO CONCERNS AT THIS TIME.
[2021-03-30 20:35] VITALS: BP 147/79
[2021-03-31 04:40] VITALS: BP 99/64
--- NOTE | 2021-03-31 05:25 | NUR ---
PT RESTING QUIETLY, C/O BACK PAIN, REPOSITIONED AND PRN PAIN MED GIVEN, REMAINS INCONT, 1 LOOSE STOOL THIS SHIFT, REMAINS ALERT TO SELF, PLANS TO RETURN TO [facility] TODAY, VSS, WILL CON'T TO MONITOR PER PPOC.
[2021-03-31 08:00] VITALS: BP 119/77
[2021-03-31 08:44] LABS: ABSOLUTE NEUTROPHILS 3.6 thou/uL (1.4-8.2); BASOPHILS 0.5 % (0.0-2.0); HEMATOCRIT 22.5 % (37.0-47.0); HEMOGLOBIN 7.3 gm/dL (12.0-15.0); LYMPHOCYTES 11.6 % (24.0-44.0); MCH 30.2 pg (26.0-34.0); MCHC 32.4 g/dL (28.0-37.0); MCV 93.1 fL (80.0-100.0); MONOCYTES 9.3 % (1.0-8.0); PLATELET COUNT 262 thou/uL (150-400); POLYS 75.6 % (36.0-66.0); RBC 2.41 mil/uL (4.20-5.00); RDW 16.3 % (10.5-14.5); WBC 4.8 thou/uL (4.0-11.0)
[2021-03-31 08:58] LABS: ALBUMIN 1.3 g/dL (3.4-5.0); CALCIUM 7.9 mg/dL (8.5-10.1); CREATININE 1.9 mg/dL (0.6-1.0); MAGNESIUM 1.8 mg/dL (1.8-2.4); POTASSIUM 4.3 mmol/L (3.5-5.1); TOTAL BILIRUBIN 0.1 mg/dL (0.2-1.0); TOTAL PROTEIN 4.2 g/dL (6.4-8.2)
--- NOTE | 2021-03-31 09:52 | NUR ---
ASSUMED CARE SHIFT CHANGE. VSS, MEDS GIVEN PER DEC. PT IN GOOD SPIRITS, READY FOR DC. NO COMPLAINTS. ASSESSMENT CHARTED. PER SW NOTE [facility] AWARE OF PT ADMISSION. PT LEFT VIA [facility] WITH ALL BELONGINGS. IV REMOVED.
--- NOTE | 2021-03-31 09:54 | NUR ---
SW faxed D/C summary, instructions, and final med list.
--- NOTE | 2021-03-31 11:56 | NUR ---
SW received a callback from pt's son Chino rivera at 1154 on this day. SW advised that pt has transitioned back to LTC care at [facility]. No further needs identified
== END 2021-03-31 10:00 | DRG 871 ==
LOC: ER 15:56 → EROBS 18:22 → 2N 18:22
PROVIDERS: Emergency Medicine; Internal Medicine; Internal Medicine Hematology & Oncology; Nurse Practitioner; ADMIT Internal Medicine; ATTEND Internal Medicine
PROC: 30233N1 Transfusion of Nonautologous Red Blood Cells into Peripheral Vein, Percutaneous Approach (ICD-10-PCS; principal; 2021-03-27)
DX: A41.9 Sepsis, unspecified organism (principal); G92 Toxic encephalopathy; A04.71 Enterocolitis due to Clostridium difficile, recurrent; N17.9 Acute kidney failure, unspecified; E46 Unspecified protein-calorie malnutrition; F41.9 Anxiety disorder, unspecified; N18.4 Chronic kidney disease, stage 4 (severe); N39.0 Urinary tract infection, site not specified; F32.9 Major depressive disorder, single episode, unspecified; E03.9 Hypothyroidism, unspecified; I25.10 Atherosclerotic heart disease of native coronary artery without angina pectoris; E78.5 Hyperlipidemia, unspecified; D50.9 Iron deficiency anemia, unspecified; F20.9 Schizophrenia, unspecified; B96.20 Unspecified Escherichia coli [E. coli] as the cause of diseases classified elsewhere; R53.81 Other malaise; Z68.27 Body mass index [BMI] 27.0-27.9, adult; Z88.8 Allergy status to other drugs, medicaments and biological substances
CPT/HCPCS: 10081; 10194

== ENCOUNTER 2021-05-11 12:13 | Inpatient (IN) | payer OTHER ==
[2021-05-11] VITALS (29 sets, daily range): BP systolic 43–162; BP diastolic 12–105
[~2021-05-11] VITALS: Ht 162.6 cm; Wt 66.2 kg
--- NOTE | ~2021-05-11 | EMS ---
[address] [address] EMS Patient Care Report Name: RODOLFO PINTO Room #: 244-P ADM IN M.R.#: [id number] Admission: 05/11/21 Attend Phys: Arsalan Castillo Discharge: Date of : 57 Report #: [id number] THIS REPORT FOR: //name// Report Transmitted: 05/13/2021 14:28 EMS Care Summary [place], [place]/[facility] Incident [id number] @ 05/11/2021 11:34 Incident Location [address] [place] [address] Patient RODOLFO PINTO Female, 66 Years 1955 Patient Address [address] [place], [place] [id number] Patient History Other,Hyperlipidemia,Urinary Tract Infection (UTI),Bipolar II Disorder,Anemia,Sepsis,Hypothyroidism,Chronic Kidney Disease, Patient Allergies Penicillin allergy,Haldol, Patient Medications Lipitor, [place], Ferrous Sulfate, Aspirin, Mirtazapine, Furosemide, Trazodone, Oxybutynin, Klonopin, Levothyroxine, Atorvastatin, Chief Complaint ALTERED LOC Disposition Transported No Lights/[place] Dispatch Reason Sick Person Transported To [facility] Narrative SCENE: ON ARRIVAL PT JOANN LYING SUPINE IN BED IN ROOM AT [facility] PROVIDED. PT [address] [address] EMS Patient Care Report Name: RODOLFO PINTO Room #: [facility] IN ..#: [id number] Admission: 05/11/21 Attend Phys: Arsalan Castillo Discharge: Date of : 57 Report #: [id number] IS ALERT TO PAINFUL STIMULI ONLY. P36 HAS PT PLACED ON NC AT 4LPM. P36 REPORTS PT IS NORMALLY AWAKE AND ALERT AND ACTIVE. STAFF STATES PT HAS BEEN IN THIS CONDITION FOR OVER 6 HOURS. PT IS MAINTAINING HER OWN AIRWAY WITH APPROPRIATE RESPIRATIONS. PT SLID TO EMS STRETCHER. AMBULANCE: VITALS MONITORED. IV ATTEMPT MADE WITHOUT SUCCESS. NO CHANGES. Initial Vitals @12:01P: 83,R: 12,GCS: 9,SpO2: 97, @12:00P: 99,R: 12,BP: 134/93,Pain: 0/10,GCS: 9,Glucose: 136,SpO2: 95,Revised Trauma: 11, @12:02P: 85,R: 12,BP: 126/84,GCS: 9,Revised Trauma: 11, Assessments @11:55MENTAL:Other,SKIN:HEENT:Head/Face: No Abnormalities,Neck/Airway: No Abnormalities,LUNG SOUNDS:General: No Abnormalities,Left Upper: No Abnormalities,Right Upper: No Abnormalities,Left Lower: No Abnormalities,Right Lower: No Abnormalities,ABDOMEN:General: No Abnormalities,Left Upper: No Abnormalities,Right Upper: No Abnormalities,Left Lower: No Abnormalities,Right Lower: No Abnormalities,PELVIS//GI:No Abnormalities,EXTREMITIES:Left Arm: No Abnormalities,Right Arm: No Abnormalities,Left Leg: No Abnormalities,Right Leg: No Abnormalities,PULSE:NEURO:No Abnormalities,@12:08MENTAL:SKIN:No Abnormalities,HEENT:Head/Face: No Abnormalities,Eyes: No Abnormalities,Neck/Airway: No Abnormalities,LUNG SOUNDS:General: No Abnormalities,Left Upper: No Abnormalities,Right Upper: No Abnormalities,Left Lower: No Abnormalities,Right Lower: No Abnormalities,ABDOMEN:General: No Abnormalities,Left Upper: No Abnormalities,Right Upper: No Abnormalities,Left Lower: No Abnormalities,Right Lower: No Abnormalities,PELVIS//GI:No Abnormalities,EXTREMITIES:Left Arm: No Abnormalities,Right Arm: No Abnormalities,Left Leg: No Abnormalities,Right Leg: No Abnormalities,PULSE:NEURO:No Abnormalities, Impression Altered Mental Status Procedures @11:54ALS AssessmentResponse: UnchangedSucceeded@12:263-Lead ECGResponse: UnchangedSucceeded@PTAOxygen FlowRate: 4 Device: Nasal Cannula (NC) Response: UnchangedSucceeded@12:27Saline Lock 0cc (18 ga) Site: Antecubital-LeftResponse: UnchangedFailed@11:56StretcherResponse: Unchanged Timeline POCKET BUILDER,Oxygen FlowRate: 4 Device: Nasal Cannula (NC) Response: UnchangedSucceeded, 11:32,Call Received 11:32,Dispatch Notified 11:34,Dispatched [address] [address] EMS Patient Care Report Name: RODOLFO PINTO Room #: 244-P [facility] IN .R.#: [id number] Admission: 05/11/21 Attend Phys: Arsalan Castillo Discharge: Date of : 57 Report #: [id number] 11:38,En Route 11:51,On Scene 11:54,At Patient 11:54,ALS Assessment,Response: UnchangedSucceeded, 11:56,Stretcher,Response: Unchanged 12:00,BP: 134/93 M,PULSE: 99,RR: 12 R,SPO2: 95 Ox,ETCO2: ,B,PAIN: 0,GCS: 9, 12:01,BP: / M,PULSE: 83,RR: 12 R,SPO2: 97 Ox,ETCO2: ,BG: ,PAIN: ,GCS: 9, 12:02,BP: 126/84 M,PULSE: 85,RR: 12 R,SPO2: Ox,ETCO2: ,BG: ,PAIN: ,GCS: 9, 12:02,Depart Scene 12:18,At Destination 12:26,3-Lead ECG,Response: UnchangedSucceeded, 12:27,Saline Lock 0cc 18 ga Site: Antecubital-Left,Response: UnchangedFailed, 12:30,Call Closed Disclaimer v1.1 Copyright 2020 [employer] This EMS Care Summary contains data elements from the applicable legal record (which may be displayed differently). It is designed to provide pertinent information for the following purposes: continuity of care, clinical quality, and state data reporting. The complete legal record is available to ED staff and administrators of the receiving hospital in [employer]'s Patient Tracker. All data is provided "as is."
--- NOTE | ~2021-05-11 | HC ---
[facility] [place] [address] CONSULTATION Name: RODOLFO PINTO Room #: 244-P ADM IN M.R.#: [id number] Admission: 05/11/21 Attend Phys: Arsalan Castillo Discharge: Date of : 57 Report #: [id number] THIS REPORT FOR: cc: Reece Sigala MD, Dennis R MD [place], Roxane S. DO ~ DATE OF SERVICE: 05/12/2021 NEUROLOGY CONSULTATION HISTORY OF PRESENT ILLNESS: The patient is a 66-year-old female who was [facility] the [facility] and while she was being evaluated, became less and less responsive. Apparently, the patient had been admitted recently in March with sepsis, dehydration, encephalopathy colitis and severe anemia. This time when the patient came to the Emergency Room, the patient required 2 people in order to go to the bathroom. She then appeared to be in a deep sleep and was only responsive to painful stimuli by 10:00 a.m. It was at this time that EMS was dispatched. In the Emergency Room, the patient was found to be unresponsive. An initial CT of the head was unremarkable, so an MRI and MRA of the head were ordered, but nothing was found on either diagnostic study, the MRI of the head showed mild chronic small vessel ischemic change; the MRA of the head and neck revealed mild small vessel ischemic change in the head, but nothing significant findings in the neck. The patient required intubation and is now in the intensive care unit. She was on a small dose of sedation, but this has been discontinued. PAST MEDICAL HISTORY: Schizophrenia, coronary artery disease, hypothyroidism, hyperlipidemia, allergic rhinitis, bipolar disorder. PAST SURGICAL HISTORY: Tubal ligation, tonsillectomy. MEDICATIONS: At home include Ceftin 250 mg b.i.d., acidophilus b.i.d., ferrous sulfate 75 mg daily, vancomycin q.i.d., aspirin 81 mg daily, atorvastatin 10 mg daily, Zyrtec daily, clonazepam 0.5 mg t.i.d., furosemide 20 mg daily, levothyroxine 125 mcg daily, lithium 300 mg b.i.d., mirtazapine 7.5 mg at bedtime, oxybutynin 5 mg at bedtime, ropinirole 0.5 mg at bedtime, Saphris 5 mg b.i.d., trazodone 100 mg at bedtime, vitamin C 500 mg daily. ALLERGIES: HALOPERIDOL. PHYSICAL EXAMINATION: VITAL SIGNS: Temperature 36.5, pulse rate 91, respiratory rate 18, blood pressure 116/67, on the ventilator. NEUROLOGIC: The right pupil is 1-2 mm larger in diameter than the left. Corneal reflexes are present. The patient's facial expressions appear [address] [address] CONSULTATION Name: RODOLFO PINTO Room #: 244-P [facility] IN M.R.#: [id number] Admission: 05/11/21 Attend Phys: Arsalan Castillo Discharge: Date of : 57 Report #: [id number] symmetrical bilaterally. The patient is able to follow simple commands. She was able to move her hands and feet. She is currently on 2-point restraints. Plantar responses are flexor bilaterally. Coordination and gait cannot be tested. LABORATORY DATA: Hematology: White blood cell count 18.5, hemoglobin 8.8, hematocrit 28.5, MCV 99.2, platelet count 271,000. Urinalysis negative. Initial blood gas pH 7.3, pCO2 of 44.3, pO2 of 354.5, oxygen saturation 99.7%. Chemistry: Sodium 149, potassium 4.5, chloride 118, carbon dioxide 21, BUN 25, creatinine 1.8, glucose 296. Lactic acid 1.4, calcium 10.3, magnesium 1.8, total bilirubin 0.4, AST 11, ALT 13, alkaline phosphatase 111. Ammonia 28. Toxicology: Deadwood 1.5. Serology: COVID negative. MRSA pending. IMPRESSION AND PLAN: Whatever has happened to cause this episode of unresponsiveness is unclear. It may be from respiratory failure. There is no evidence of stroke on the MRI head and no evidence of large vessel occlusion on the MRA of the head and neck. Now, the patient is somewhat awake and able to follow simple commands. I would continue supportive care, particularly for the aspiration pneumonia. Her lithium level is high. It is 1.5. Deadwood is currently being held. It may be of benefit to have Psychiatry see the patient, so they can manage her lithium and other psychiatric meds. I will ask Dr. Eason to see the patient on Thursday morning. I thank you for your kind referral of this patient. By: 1218 Sierra Rivera, /nt
[~2021-05-11 12:13] MED LIST changes: +CEFUROXIME250 MG PO; +CHILDREN'S15 MG/1 M2 PO; +FLORANEX GRANU1 EACH PO
[2021-05-11 12:34] LABS: ABSOLUTE NEUTROPHILS 6.2 thou/uL (1.4-8.2); BASOPHILS 0.5 % (0.0-2.0); EOSINOPHILS 1.6 % (0.0-3.0); HEMATOCRIT 31.8 % (37.0-47.0); HEMOGLOBIN 10.4 gm/dL (12.0-15.0); MCH 30.4 pg (26.0-34.0); MCHC 32.7 g/dL (28.0-37.0); MCV 93.1 fL (80.0-100.0); PLATELET COUNT 280 thou/uL (150-400); POLYS 77.9 % (36.0-66.0); RBC 3.41 mil/uL (4.20-5.00); RDW 16.3 % (10.5-14.5)
[2021-05-11 12:40] LABS: URINE BILIRUBIN NEGATIVE (Negative); URINE BLOOD NEGATIVE (Negative); URINE CLARITY CLEAR; URINE COLOR YELLOW; URINE GLUCOSE-RANDOM* NEGATIVE (Negative); URINE KETONES NEGATIVE (Negative); URINE LEUKOCYTES-REFLEX TRACE (Negative); URINE NITRITE-REFLEX NEGATIVE (Negative); URINE PROTEIN (DIPSTICK) NEGATIVE (Negative); URINE SPECIFIC GRAVITY <= 1.005 (1.005-1.035); URINE UROBILINOGEN 0.2 E.U./dl (0.2-1.0)
[2021-05-11 12:49] LABS: ANION GAP 6 mmol/L (7-16); BUN 30 mg/dL (7-18); CALCIUM 11.4 mg/dL (8.5-10.1); CHLORIDE 111 mmol/L (98-107); CO2 27 mmol/L (21-32); CREATININE 1.9 mg/dL (0.6-1.0); GLUCOSE 135 mg/dL (74-106); POTASSIUM 4.5 mmol/L (3.5-5.1); SODIUM 144 mmol/L (136-145)
[2021-05-11 12:56] LABS: HCO3 23.2 mmol/L (22.0-26.0); PCO2 41.4 mmHg (35.0-45.0); pH 7.367 (7.360-7.450)
[2021-05-11 13:00] LABS: ALBUMIN 3.4 g/dL (3.4-5.0); SGOT 13 U/L (15-37); SGPT 16 U/L (14-59); TOTAL BILIRUBIN 0.3 mg/dL (0.2-1.0); TOTAL PROTEIN 7.7 g/dL (6.4-8.2); TROPONIN-I <0.06 ng/mL (<0.06)
--- NOTE | 2021-05-11 13:15 | NUR ---
PER SON 6 WEEKS AGO SEPTIC AND HERE IN ICU, LOSS OF SPEECH @ THAT TIME.
--- NOTE | 2021-05-11 13:28 | NUR ---
PER [place] PT WAS TWO PERSON ASSIST AT 0500 FOR BR, 0830 THE CHARGE NURSE FELT SHE WAS SLEEPING HEAVY AND CALLED EMS 1030.
--- NOTE | 2021-05-11 13:44 | NUR ---
20 ETOMIDATE GIVEN VIA IV AT 1344 7.0 ETT PLACED 23 @ LIP AT 1345
--- NOTE | 2021-05-11 14:44 | NUR ---
ATTEMPTED TO CALL SON AND MESSAGE LEFT REQUESTING RETURN CALL. CALLED 2ND NUMBER NO ANSWER AND UNABLE TO LEAVE A MESSAGE.
[2021-05-11 15:38] LABS: BE(vivo) -3.6 mmol/L (-2 to +3); HCO3 22.4 mmol/L (22.0-26.0); PCO2 44.3 mmHg (35.0-45.0); PO2 354.5 mmHg (80.0-100.0); pH 7.321 (7.360-7.450); sO2 99.7 % (92.0-98.0)
[2021-05-11 15:44] LABS: AMP/METHAMP Negative (Negative); BARBITURATES Negative (Negative); BENZODIAZEPINES Negative (Negative); COCAINE Negative (Negative); METHADONE Negative (Negative); OPIATES Negative (Negative); PCP Negative (Negative)
--- NOTE | 2021-05-11 16:55 | NUR ---
BS 118
--- NOTE | 2021-05-11 16:57 | NUR ---
CL PLACED IN ER
[2021-05-11 22:54] LABS: ABSOLUTE NEUTROPHILS 14.8 thou/uL (1.4-8.2); BASOPHILS 0.2 % (0.0-2.0); EOSINOPHILS 0.2 % (0.0-3.0); HEMATOCRIT 24.8 % (37.0-47.0); MCH 30.9 pg (26.0-34.0); MCHC 32.4 g/dL (28.0-37.0); MCV 95.4 fL (80.0-100.0); MONOCYTES 4.6 % (1.0-8.0); PLATELET COUNT 222 thou/uL (150-400); RDW 16.5 % (10.5-14.5); WBC 16.3 thou/uL (4.0-11.0)
[2021-05-11 22:58] LABS: CREATININE 1.6 mg/dL (0.6-1.0); MAGNESIUM 1.8 mg/dL (1.8-2.4); POTASSIUM 3.7 mmol/L (3.5-5.1)
[2021-05-11 23:18] LABS: BE(vivo) -7.8 mmol/L (-2 to +3); PCO2 44.3 mmHg (35.0-45.0); PO2 201.5 mmHg (80.0-100.0); sO2 99.2 % (92.0-98.0)
[2021-05-11 23:20] LABS: pH 7.251 (7.360-7.450)
[2021-05-12] VITALS (50 sets, daily range): BP systolic 77–167; BP diastolic 36–94
[2021-05-12 04:57] LABS: HEMATOCRIT 28.5 % (37.0-47.0); HEMOGLOBIN 8.8 gm/dL (12.0-15.0); MCH 30.7 pg (26.0-34.0); MCHC 30.9 g/dL (28.0-37.0); MCV 99.2 fL (80.0-100.0); RBC 2.87 mil/uL (4.20-5.00); RDW 17.3 % (10.5-14.5); WBC 18.5 thou/uL (4.0-11.0)
[2021-05-12 04:59] LABS: BE(vivo) -6.9 mmol/L (-2 to +3); PCO2 45.7 mmHg (35.0-45.0); PO2 230.9 mmHg (80.0-100.0); pH 7.259 (7.360-7.450); sO2 99.4 % (92.0-98.0)
[2021-05-12 05:18] LABS: CREATININE 1.7 mg/dL (0.6-1.0); MAGNESIUM 1.8 mg/dL (1.8-2.4)
[2021-05-12 05:51] LABS: CALCIUM 10.3 mg/dL (8.5-10.1); CREATININE 1.8 mg/dL (0.6-1.0); POTASSIUM 4.5 mmol/L (3.5-5.1); TOTAL BILIRUBIN 0.4 mg/dL (0.2-1.0); TOTAL PROTEIN 7.4 g/dL (6.4-8.2)
--- NOTE | 2021-05-12 07:30 | NUR ---
ASSUMED CARE OF PATIENT AT 1999, BLOOD PRESSURE CRITICALLY LOW. ORDERS RECIEVED FOR LEVO. NO IMPROVEMENT. DR SANCHEZ NOTIFIED, ORDERS FOR VANNESSA AND VASO AND FLUID BOLUS. NO IMPROVEMENT. HEART RATE BRADYCARDIC, ATROPINE GIVEN, DOPAMINE STARTED. PATIENT REMAINS ON ALL GTTS, AND VERY MINIMAL SEDATION. NOT IMPROVING.
--- NOTE | 2021-05-12 12:22 | EKG ---
[address] [place] [address] ELECTROCARDIOGRAM REPORT Name: RODOLFO PINTO Room #: 244-P ADM IN M.R.#: [id number] Admission: 05/11/21 Attend Phys: Arsalan Castillo Discharge: Date of : 57 Report #: [id number] [facility] ED Test Date: 2021-05-11 Test Time: 12:16:42 Pat Name: RODOLFO PINTO Department: Room: [facility] Gender: F [employer]: CANDELARIA : 1955 Requested By: Brianne Mcconnell Order Number: [id number] MD: Ignacio Alegria Measurements Intervals [employer] Rate: 92 P: 43 MS: 148 QRS: -32 QRSD: 130 T: 104 QT: 389 QTc: 482 Interpretive Statements Sinus rhythm Left bundle branch block Compared to ECG 03/07/2021 15:16:23 Left bundle-branch block now present Sinus bradycardia no longer present Intraventricular conduction delay no longer present Myocardial infarct finding no longer present Electronically Signed On 05-12-2021 12:22:05 CDT by Ignacio Alegria [email or web address] <ELECTRONICALLY SIGNED> By: Ignacio Alegria MD 05/12/21 1222 1216 1216 Ignacio Alegria MD /EPI
[2021-05-13] VITALS (37 sets, daily range): BP systolic 88–155; BP diastolic 48–95
[2021-05-13 04:44] LABS: HEMATOCRIT 26.9 % (37.0-47.0); HEMOGLOBIN 8.4 gm/dL (12.0-15.0); MCHC 31.3 g/dL (28.0-37.0); MCV 99.2 fL (80.0-100.0); RBC 2.72 mil/uL (4.20-5.00); RDW 17.7 % (10.5-14.5); WBC 10.2 thou/uL (4.0-11.0)
[2021-05-13 05:50] LABS: ALBUMIN 2.4 g/dL (3.4-5.0); ANION GAP 12 mmol/L (7-16); BUN 20 mg/dL (7-18); CALCIUM 10.4 mg/dL (8.5-10.1); CHLORIDE 120 mmol/L (98-107); CO2 19 mmol/L (21-32); CREATININE 1.6 mg/dL (0.6-1.0); GLUCOSE 129 mg/dL (74-106); PHOSPHORUS 3.4 mg/dL (2.5-4.9); POTASSIUM 4.2 mmol/L (3.5-5.1); SODIUM 151 mmol/L (136-145); TROPONIN-I <0.06 ng/mL (<0.06)
--- NOTE | 2021-05-13 07:00 | NUR ---
Pt remains on vent. No event in this shift. Continue to be off levophed gtt, MAP > 65 mmHg. Wean down FiO2 to 30 % this am. She is slowly progressing towards POCs.
--- NOTE | 2021-05-13 10:50 | 2DMMODE ---
[facility] [place] [address] 2 D/M-MODE ECHOCARDIOGRAM Name: RODOLFO PINTO Cecilio Room #: 244-P ADM IN .R.#: [id number] Admission: 05/11/21 Attend Phys: Arsalan Castillo Discharge: Date of : 57 Report #: [id number] THIS REPORT FOR: cc: Reece Sigala MD, Dennis R MD Santiago, Patrick MD [facility] ~ APPROVED REPORT Study performed: 05/13/2021 09:50:41 EXAM: Comprehensive 2D, Doppler, and color-flow Echocardiogram Patient Location: In-Patient Room #: 244 Status: routine BSA: 1.74 HR: 109 bpm BP: 113/52 mmHg Rhythm: Tachycardia Other Information Study Quality: Good Indications CAD Tachycardia 2D Dimensions IVSd: 12.02 (7-11mm) LVOT Diam: 19.97 (18-24mm) LVDd: 37.76 mm PWd: 11.22 (7-11mm) Ascending Ao: 27.53 (22-36mm) LVDs: 28.81 (25-40mm) Left Atrium: 31.21 (27-40mm) Aortic Root: 30.88 mm LV Single Plane 4CH: 33.61 % LV Single Plane 2CH: 17.30 % Volumes Left Atrial Volume (Systole) Single Plane 4CH: 74.71 mL Aortic Valve AoV Peak Pradeep.: 1.98 m/s AO Peak Gr.: 17.84 mmHg LVOT Max P.32 mmHg LVOT Max V: 1.35 m/s [facility] [address] [place] [address] 2 D/M-MODE ECHOCARDIOGRAM Name: RODOLFO PINTO Room #: 244-P [facility] IN ..#: [id number] Admission: 05/11/21 Attend Phys: Arsalan Clay Discharge: Date of : 57 Report #: [id number] CELIA Vmax: 2.14 cm2 Mitral Valve IVRT: 96.89 ms Pulmonary Valve PV Peak Pradeep.: 1.12 m/s PV Peak Gr.: 5.05 mmHg Tricuspid Valve TR Peak Pradeep.: 3.01 m/s RAP Estimate: 7.00 mmHg TR Peak Gr.: 36.26 mmHg RVSP: 43.00 mmHg Left Ventricle The left ventricle is normal size. There is normal LV segmental wall motion. There is normal left ventricular wall thickness. Left ventricular systolic function is normal. The left ventricular ejection fraction is within the normal range. LVEF is 45-50%. This study is not technically sufficient to allow evaluation of the LV diastolic function. Right Ventricle The right ventricle is normal size. The right ventricular systolic function is normal. Atria The left atrium size is normal. The right atrium size is normal. Aortic Valve The aortic valve is normal in structure. No aortic regurgitation is present. There is no aortic valvular stenosis. Mitral Valve The mitral valve is normal in structure. Trace mitral regurgitation. No evidence of mitral valve stenosis. Tricuspid Valve The tricuspid valve is normal in structure. Mild tricuspid regurgitation. PAP 43 mmHg. Pulmonic Valve The pulmonary valve is normal in structure. There is no pulmonic valvular regurgitation. Great Vessels The aortic root is normal in size. IVC is normal in size and [facility] [address] [place] [address] 2 D/M-MODE ECHOCARDIOGRAM Name: MARIA ALEJANDRA PINTOKristie Hernandes Room #: 244-P [facility] IN ..#: [id number] Admission: 05/11/21 Attend Phys: Arsalan Clay Discharge: Date of : 57 Report #: [id number] collapses >50% with inspiration. Pericardium There is no pericardial effusion. There is no pleural effusion. <Conclusion> Normal left ventricular size/wall thickness Ejection fraction 45-50% Grade 1 diastolic dysfunction Normal right ventricular size/function Normal atrial size Color-flow Doppler study was performed of the aortic/mitral/tricuspid/pulmonary valve Normal aortic/mitral valve structure and function Mild tricuspid valve insufficiency Pulmonary systolic pressure estimated 43 mmHg Normal aortic root size No pericardial effusion <ELECTRONICALLY SIGNED> By: Joel Campbell MD, [facility] 05/13/21 1050 1050 1050 Joel Campbell MD, FACC /INF
--- NOTE | 2021-05-13 11:58 | NUR ---
WOUND CONSULT; NO WOUNDS WERE IDENTIFIED VERIFIED BY THE RN TODAY. NO NEED TO FOLLOW. DISCUSSED WITH RN. RECONSULT IF NEEDED.
--- NOTE | 2021-05-13 13:30 | NUR ---
Chart review. Unable to visit with her, r/t on vent. She was recently here in 03/2021. She lives at [facility]. Son verna is her contact. Will cont following as needed for dc needs.
--- NOTE | 2021-05-13 15:46 | HC ---
[facility] [place] [address] CONSULTATION Name: RODOLFO PINTO Room #: 244-P ADM IN M.R.#: [id number] Admission: 05/11/21 Attend Phys: Arsalan Castillo Discharge: Date of : 57 Report #: [id number] THIS REPORT FOR: cc: Reece Sigala MD, Dennis R MD [place], Christian C. MD ~ cc: Mack Davila MD, Arsalan Castillo MD DATE OF SERVICE: 05/12/2021 HISTORY OF PRESENT ILLNESS: The patient is a 66-year-old female who was admitted to the Emergency Room yesterday with altered mental status, respiratory failure, possible aspiration pneumonia. She was intubated in the ER, chest x-ray on admission shows patchy right mid lung and lower basilar infiltrate with small effusion. REASON FOR GI CONSULTATION: In speaking with Dr. Mcconnell yesterday, an OG was placed in the Emergency Room. She did feel resistance distally and it appears the OG is either at the GE junction or in a small hiatal hernia based on the CT scan results, which were performed yesterday. CT showing sigmoid diverticulosis without evidence of diverticulitis, consolidation of the right lower lobe suspicious for pneumonia, trace right pleural effusion, small to moderate hiatal hernia, the enteric tube terminates within the hiatal hernia. The patient apparently is not on sedation at this time, is minimally responsive. She had an MRI of her head, which was unremarkable including MR angiogram. She is on several pressors at this time. The OG is hooked up to intermittent suction. This is showing bilious type material. No evidence of bleeding. Nurse reports no bowel movements or signs of blood in her stools recently. The patient did have a hospitalization in March. At that time, had C. diff and was anemic. Her hemoglobin at this time was 10.4 on admission, is 8.8 today. The patient lives in a group home and she was noted to have mental status changes there prior to evaluation in the Emergency Room. She has a previous hospitalization for sepsis, encephalopathy, C. diff again in March. PAST MEDICAL HISTORY: History of anemia, aspiration pneumonia, previous history of C. diff colitis, chronic renal disease, depression, schizophrenia, bipolar disorder, hypothyroidism, previous urinary tract infections, coronary artery disease, hyperlipidemia, possible esophageal dilation in the past, anxiety. ALLERGIES: HALDOL. REVIEW OF SYSTEMS: Unobtainable. FAMILY HISTORY: Unobtainable. SOCIAL HISTORY: Unknown. [address] [address] CONSULTATION Name: RODOLFO PINTO Room #: 244-P [facility] IN [facility].#: [id number] Admission: 05/11/21 Attend Phys: Arsalan Castillo Discharge: Date of : 57 Report #: [id number] PHYSICAL EXAMINATION: VITAL SIGNS: Temperature is 37.1, pulse 91, blood pressure 116/67, respiratory rate 18. GENERAL: She is not sedated at this time, on a vent. She is nonresponsive. HEENT: Sclerae nonicteric. Endotracheal and OG noted. OG again with bilious material. No evidence of blood. CARDIAC: Regular rate. CHEST: With decreased and coarse breath sounds on the right. ABDOMEN: Soft, nondistended. Positive bowel sounds. EXTREMITIES: No cyanosis, clubbing or edema. LABORATORY DATA: WBC is 18.5, hemoglobin 8.8, platelet count 271. Sodium 149, potassium 4.5, chloride 118, bicarbonate 21, BUN 25, creatinine 1.8, glucose 296. Lactic acid level 1.4, calcium 10.3, phosphorus 2.6. Iron 12, TIBC 102, percent sat is 12, ferritin 547. AST 11, ALT 13, alkaline phosphatase 111. Ammonia level 28. Troponin less than 0.06. Lipase 277. TSH 1.85. INR 1.09. ASSESSMENT AND PLAN: Possible aspiration pneumonia, sepsis. In placing orogastric tube yesterday, there apparently was some resistance distally. Suspect this is due to hiatal hernia; however, the patient may be having dysphagia requiring dilation or other issues causing aspiration pneumonia. Would consider proceeding with an upper endoscopy in the near future to evaluate her esophagus and stomach further, may consider doing this tomorrow; however, she is on several pressors at this time. We will continue to monitor and possibly perform upper endoscopy in the near future when more stable. In the meantime, having the orogastric tube in the hiatal hernia I believe would be safe and continuing with intermittent suction currently. No signs of bleeding. Previous history of anemia. Hemoglobin at this time has drifted down to 8, but again no signs of a gastrointestinal bleed at this time. We will continue to follow closely. Thank you for allowing me to participate in her care. <ELECTRONICALLY SIGNED> By: Gray Sotomayor MD 05/13/21 1546 1127 14 Gray Sotomayor MD /nt
--- NOTE | 2021-05-13 16:14 | NUR ---
Per alton Murillo to come out of CDIFF Isolation.
--- NOTE | 2021-05-13 16:16 | NUR ---
Nurse handed over care of patient at around noon today to Ignacio for continuation of care. Nurse talked with Dr. Humphreys about patient lab results, OG tube status, and plan of care with current treatments.
--- NOTE | 2021-05-13 16:45 | NUR ---
TOOK OVER CARE AT 1415
--- NOTE | 2021-05-13 18:46 | NUR ---
RESUMED CARE AT 1415. SO SIGNIFICANT EVENTS SINCE TAKING OVER CONTINUES ON PROPOFOL. SPOKE WITH GI LEAVING OG TUBE IN PLACE. PLANS FOR EGS TOMORROW.
[2021-05-14] VITALS (24 sets, daily range): BP systolic 101–463; BP diastolic 53–103
[2021-05-14 05:14] LABS: HEMATOCRIT 28.6 % (37.0-47.0); HEMOGLOBIN 9.1 gm/dL (12.0-15.0); MCH 31.2 pg (26.0-34.0); MCHC 31.8 g/dL (28.0-37.0); MCV 97.9 fL (80.0-100.0); RBC 2.93 mil/uL (4.20-5.00); RDW 17.4 % (10.5-14.5); WBC 9.5 thou/uL (4.0-11.0)
[2021-05-14 05:59] LABS: ALBUMIN 2.7 g/dL (3.4-5.0); CALCIUM 11.8 mg/dL (8.5-10.1); CREATININE 1.8 mg/dL (0.6-1.0); PHOSPHORUS 3.5 mg/dL (2.5-4.9); POTASSIUM 4.5 mmol/L (3.5-5.1)
--- NOTE | 2021-05-14 07:00 | NUR ---
PT REMAINS ON VENT. NO EVENT TONIGHT. PLAN FOR EGD THIS AM.
--- NOTE | 2021-05-14 14:04 | NUR ---
Patient was started on precedex to wean off propofol. Propofol transition was in progress, however patient remained on propofol for EGD with Dr. Sotomayor. It was noted that patient was in a bigeminy rhythm with sinus bradycardia/junctional rhythm, coupled with a pvc. Blood pressure hypotensive with lowest reading of SBP in the 70's. Propofol held, precedex stopped. Blood pressure increased to SBP 120's, with heart rate 70's-90's, normal sinus rhythm. This was informed to Dr. Sotomayor and Dr. Humphreys. Precedex to be discontinued. Patient tolerated EGD well, heart rate is 85 bpm at this time, blood pressure is monitoring. She is resting calmly and quietly and this time.
--- NOTE | 2021-05-14 15:49 | NUR ---
Dr. Humphreys in [facility], cpap trial initiated now. at 1549. RT informed of this.
[2021-05-14 16:49] LABS: BE(vivo) -6.7 mmol/L (-2 to +3); HCO3 19.1 mmol/L (22.0-26.0); PCO2 38.8 mmHg (35.0-45.0); PO2 83.7 mmHg (80.0-100.0); sO2 95.4 % (92.0-98.0)
[2021-05-14 16:50] LABS: pH 7.309 (7.360-7.450)
[2021-05-15] VITALS (20 sets, daily range): BP systolic 68–185; BP diastolic 30–129
--- NOTE | 2021-05-15 04:01 | NUR ---
ASSUMED CARE OF PATIENT AT 1900. PATIENT REMAINS ON VENT, WITH PROPOFOL FOR SEDATION. GENEROUS URINE OUTPUT. COPIOUS GASTRIC CONTENTS. PROGRESSING TOWARDS POC GOALS.
--- NOTE | 2021-05-15 09:54 | NUR ---
Nurse updated Dr. Humphreys of patient awaken, strong gag/cough/frequent. Tachycardia- HR 120's-140's. Systolic blood pressure 160's. O2 saturation 100%. Tachypnia RR 20's. He expressed to give IV metoprolol and draw an ABG to see about possible extubation.
[2021-05-15 10:18] LABS: BE(vivo) -3.9 mmol/L (-2 to +3); HCO3 21.1 mmol/L (22.0-26.0); PCO2 38.1 mmHg (35.0-45.0); PO2 100.6 mmHg (80.0-100.0); pH 7.362 (7.360-7.450); sO2 97.4 % (92.0-98.0)
--- NOTE | 2021-05-15 10:40 | NUR ---
1040- Per Dr. Humphreys order, patient extubated to face shield. Tolerated well.
--- NOTE | 2021-05-15 15:02 | P ---
[facility] [place] [address] PROCEDURE REPORT Name: RODOLFO PINTO Room #: 244-P ADM IN M.R.#: [id number] Admission: 05/11/21 Attend Phys: Arsalan Castillo Discharge: Date of : 57 Report #: [id number] THIS REPORT FOR: cc: Reece Sigala MD, Dennis R MD [place], Christian C. MD ~ cc: Arsalan Castillo MD, Christiano Humphreys MD DATE OF SERVICE: 05/14/2021 PROCEDURE PERFORMED: Upper endoscopy with the guidance of OG-tube into the patient's stomach. HISTORY OF PRESENT ILLNESS: The patient is a 66-year-old female, who was admitted through the emergency room over the weekend for likely aspiration pneumonia and respiratory failure, was intubated in the emergency room. At that time, an OG was passed; however, resistance was felt distally. A CT scan of the abdomen and pelvis was performed, which showed the OG tip and a small hiatal hernia. The patient is unable to give any history at this time as far as possible dysphagia or reflux. She is on Pepcid currently. There are no signs of gastrointestinal bleed currently. Hemoglobin today is 9.1. Plan is for EGD for further evaluation as well as advancement of OG into the patient's stomach. DESCRIPTION OF PROCEDURE: The risks and benefits of the procedure were explained to the patient's durable power of assistant district attorney. Those risks including, but not limited to bleeding, perforation and the risk of sedation. They understood these risks and gave informed consent. The procedure was performed in the ICU at the bedside. The patient is already sedated with Precedex. Again is on a vent at this time. Next, using a standard Olympus upper endoscope, the scope was placed in the patient's mouth and the OG tube was already in the patient's esophagus. The scope was placed in the patient's mouth and advanced under direct vision, next to the OG, through the esophagus, stomach and into the second portion of the duodenum. The upper and mid esophagus was normal in appearance. In the distal esophagus, there was a mild Schatzki's ring. Also noted was grade B erosive esophagitis. Upon entering the stomach, a small hiatal hernia was noted. The OG tube was stuck within the hiatal hernia. I was able to gently pull the OG back and then guide it into the patient's antrum under direct vision. There was a moderate gastritis noted throughout the stomach. No evidence of ulcerations or bleeding. The pylorus was normal and patent. The duodenal bulb, first and second portion were all normal. The scope was then withdrawn and again documented that the OG was in the patient's gastric antrum. I was able to remove the scope without removing the OG tube. The scope was then withdrawn and the procedure terminated. The patient tolerated the procedure well. IMPRESSION: [facility] [address] [place] [address] PROCEDURE REPORT Name: RODOLFO PINTO Room #: 244-P [facility] IN M.R.#: [id number] Admission: 05/11/21 Attend Phys: Arsalan Castillo Discharge: Date of : 57 Report #: [id number] 1. Moderate gastritis. 2. Small hiatal hernia. 3. Repositioning of OG tip from hiatal hernia into the gastric antrum under direct vision as described above. 4. Grade B erosive esophagitis. RECOMMENDATIONS: 1. Okay to start using OG tube at this time. 2. We will switch from Pepcid to Protonix due to her esophagitis. 3. Hopefully, when the patient is improved, we will discuss possible repeat EGD with dilation. Thank you for allowing me to participate in her care. <ELECTRONICALLY SIGNED> By: Gray Sotomayor MD 05/15/21 1502 1306 2126 Gray Sotomayor MD /nt
--- NOTE | 2021-05-15 18:00 | NUR ---
Patient progressing towards plan of care as evidenced by ability to get extubated today. Patient tolerating room air at this time.
[2021-05-15 22:37] LABS: MAGNESIUM 2.6 mg/dL (1.8-2.4); PHOSPHORUS 2.5 mg/dL (2.5-4.9)
[2021-05-15 22:38] LABS: ALBUMIN 2.9 g/dL (3.4-5.0); CALCIUM 11.7 mg/dL (8.5-10.1); CREATININE 1.6 mg/dL (0.6-1.0); POTASSIUM 3.2 mmol/L (3.5-5.1); TOTAL BILIRUBIN 0.3 mg/dL (0.2-1.0); TOTAL PROTEIN 7.2 g/dL (6.4-8.2)
[2021-05-16] VITALS (23 sets, daily range): BP systolic 98–183; BP diastolic 53–115
[2021-05-16 05:37] LABS: HEMATOCRIT 30.9 % (37.0-47.0); HEMOGLOBIN 10.1 gm/dL (12.0-15.0); MCH 31.2 pg (26.0-34.0); MCHC 32.6 g/dL (28.0-37.0); MCV 95.7 fL (80.0-100.0); RBC 3.23 mil/uL (4.20-5.00); RDW 16.8 % (10.5-14.5); WBC 9.2 thou/uL (4.0-11.0)
[2021-05-16 06:04] LABS: CALCIUM 11.8 mg/dL (8.5-10.1); CREATININE 1.5 mg/dL (0.6-1.0); PHOSPHORUS 2.4 mg/dL (2.5-4.9); POTASSIUM 3.7 mmol/L (3.5-5.1)
--- NOTE | 2021-05-16 08:44 | NUR ---
Assummed care of this patient from the night nurse, Na VEGA. Patient is yelling out and impulsive, kicking off covers and pulling off O2 sat monitor. Monitor shows ST with increased heart rate with increased aggitation. Patient is able to take ice chips and small sips of water without issues.
--- NOTE | 2021-05-16 19:36 | NUR ---
PATIENT IS SLOWLY PROGRESSING TOWARDS OUTCOME GOALS. REMAINS CONFUSED AND EASILY AGGITATED. SON, SOY IN THIS EVENING AND ASSISTED HIS MOTHER WITH DINNER. UPDATED ON HER POC, QUESTIONS ANSWERED AND REASSURANCE GIVEN.
[2021-05-17] VITALS (8 sets, daily range): BP systolic 97–150; BP diastolic 56–101
[2021-05-17 05:11] LABS: HEMATOCRIT 30.2 % (37.0-47.0); HEMOGLOBIN 9.6 gm/dL (12.0-15.0); MCH 30.8 pg (26.0-34.0); MCHC 31.7 g/dL (28.0-37.0); MCV 97.2 fL (80.0-100.0); RBC 3.11 mil/uL (4.20-5.00); WBC 8.4 thou/uL (4.0-11.0)
[2021-05-17 05:36] LABS: ALBUMIN 2.7 g/dL (3.4-5.0); CALCIUM 10.8 mg/dL (8.5-10.1); CREATININE 1.6 mg/dL (0.6-1.0); PHOSPHORUS 1.9 mg/dL (2.5-4.9); POTASSIUM 3.1 mmol/L (3.5-5.1)
--- NOTE | 2021-05-17 16:13 | NUR ---
FAXED CLINICAL UPDATES AND NEGATIVE COVID RESULT (05/11/21) TO [facility]. [facility] P [phone]; FAX [phone]
--- NOTE | 2021-05-17 16:36 | NUR ---
Chart review. Discussed during am unite rounds and los. Noted she is restless and yelling out. Unable to feed her self and has to be feed meals. Updates to be sent to [facility], where she lives. Will cont following as needed for dc needs.
--- NOTE | 2021-05-17 20:21 | NUR ---
Patient progressing towards plan of care as evidenced by room air status, increasing alertness and interactive, stable hemodynamics, and med/surg tele status.
--- NOTE | 2021-05-17 22:08 | NUR ---
ASSUMED CARE AT 190. REMOVED RESTRAINTS AT 2014, PT NOT PULLING AT SMITH OR CENTRAL LINE. CALLS OUT PERIODICALLY WANTING WATER OR TO USE THE PHONE, REDIRECTS FAIRLY EASILY WHEN SHE IS YELLING. CALLED REPORT TO MARGIE ON AT 2119. PT MOVED VIA BED AT 2209, PT LEFT ICU IN STABLE CONDITION.
--- NOTE | 2021-05-18 05:48 | NUR ---
patient is a transfer from icu patient denied pain or discomfort. patient i easy to redirect. fluids offered. patient need minimum assistance with adl, bed mobility, transfer and toileting.patient aox2 confused and forgetful. fall precaution in place. patient in bed asleep at this time breathing regular and unlaboured.
[2021-05-18 07:40] VITALS: BP 150/84
--- NOTE | 2021-05-18 20:02 | NUR ---
Assumed pt care this am, confused and would yell out for most of the day for food or water. Diet adn medications are tolerated well. Progressing well towards goals, Fc in place. Endorsed to the night nurse.
[2021-05-18 20:27] VITALS: BP 107/78
--- NOTE | 2021-05-19 03:04 | NUR ---
PT CARE ASSUMED WITH PT IN BED .PT IS A/O X2.PT IS UP WITH X1 ASSIST TO THE BEDSIDE COMMODE.PT IMPULSIVE .PT IS ON PUREED DIET AND ON NECTAR THICK LIQUID.IV ACCESS RT IJ WITH D5 AT 100CC/HR.PT HAS A SMITH CATHETER.PT IS ACCUCHECK.PT HAD BM X2 YESTERDAY.WILL CONTINUE TO MONITOR
[2021-05-19 07:30] VITALS: BP 114/90
[2021-05-19 11:23] LABS: CALCIUM 10.7 mg/dL (8.5-10.1); CREATININE 1.6 mg/dL (0.6-1.0); POTASSIUM 3.8 mmol/L (3.5-5.1)
--- NOTE | 2021-05-19 11:30 | NUR ---
A/O X 2. oNE ASSIST WITH TRANSFERS AND adlS. She has yelled out a few times. She is talking about her son and is excited to see him soon she says, has a right double lumen IJ patent and flushes well. Tolerating her diet of puree and nectar thick liquids well. Uses bed side commode.
[2021-05-19 16:45] VITALS: BP 125/77
[2021-05-19 19:38] VITALS: BP 130/84
--- NOTE | 2021-05-20 02:55 | NUR ---
PT IS A/O X2 AND IS ON BEDREST. ROOM AIR. SR ON THE MONITOR. VSS AFEBRILE. MEDICATIONS GIVEN CRUSHED IN APPLE SAUCE. PUREED DIET WITH NECTAR THICK LIQUIDS. SMITH IN PLACE. NO BM THIS SHIFT. FALL PRECAUTIONS IN PLACE, CALL LIGHT IS WITHIN REACH. WILL CONTINUE TO MONITOR.
[2021-05-20 04:51] LABS: HEMATOCRIT 27.8 % (37.0-47.0); MCH 31.1 pg (26.0-34.0); MCHC 32.3 g/dL (28.0-37.0); MCV 96.3 fL (80.0-100.0); RBC 2.89 mil/uL (4.20-5.00); RDW 16.2 % (10.5-14.5); WBC 8.2 thou/uL (4.0-11.0)
[2021-05-20 05:10] LABS: CALCIUM 10.8 mg/dL (8.5-10.1); CREATININE 1.5 mg/dL (0.6-1.0); POTASSIUM 3.7 mmol/L (3.5-5.1)
[2021-05-20 06:12] VITALS: BP 146/88
[2021-05-20 07:45] VITALS: BP 134/79
--- NOTE | 2021-05-20 15:28 | NUR ---
Assumed pt care this am, vs stable. VEry conlrfused and forgetfulo. Pureed dient and nectar thick liquids maintained. Would refuse medication thus delays in the timing. POC followed with no signs or verbalizations of distress noted.
--- NOTE | 2021-05-20 17:27 | NUR ---
pt not cooperative when approached to change her Rt IJ dsg, will attempt at another time
[2021-05-20 20:00] VITALS: BP 117/71
--- NOTE | 2021-05-21 04:56 | NUR ---
patient aox1 confused and forgetful at times. patient on nectar thicken and requesting thin liquid. cath care done this shift. fall precaution in place. patient in bed asleep at this time breathing regular and unlaboured.
[2021-05-21 07:52] VITALS: BP 123/84
[2021-05-21 10:57] LABS: HEMATOCRIT 34.8 % (37.0-47.0); HEMOGLOBIN 10.9 gm/dL (12.0-15.0); MCH 30.4 pg (26.0-34.0); MCHC 31.5 g/dL (28.0-37.0); MCV 96.6 fL (80.0-100.0); RBC 3.6 mil/uL (4.20-5.00); RDW 16.5 % (10.5-14.5); WBC 9.4 thou/uL (4.0-11.0)
[2021-05-21 11:17] LABS: CREATININE 1.6 mg/dL (0.6-1.0); MAGNESIUM 2.5 mg/dL (1.8-2.4); POTASSIUM 3.8 mmol/L (3.5-5.1)
[2021-05-21 11:23] LABS: CALCIUM 12.1 mg/dL (8.5-10.1)
[2021-05-21 12:29] LABS: CALCIUM 11.9 mg/dL (8.5-10.1); CREATININE 1.6 mg/dL (0.6-1.0)
--- NOTE | 2021-05-21 14:30 | NUR ---
CARE TEAM INDICATED THAT PT'S SODIUM AND CALCIUM WERE OFF SO THEY WERE WORKING TO RESOLVE THOSE. IT IS ANTICPATED THAT PT WILL RETURN TO [facility] ONCE MEDICALLY STABLE. CM FOLLOWING REGARDING DC PLANNING.
[2021-05-21 14:57] VITALS: BP 110/72
--- NOTE | 2021-05-21 17:34 | NUR ---
FAXED CLINICAL UPDATES TO [facility]. WILL CONFIRM THEY RECEIVED. [facility] P [phone]; FAX [phone]; [facility] FAX [phone]
--- NOTE | 2021-05-21 18:29 | NUR ---
Assumed pt care this am, vs stable. Alert to self and irritable at times. ST eval done, nectar thick liquids maintained, mech altered groind consistency from food. POC followed, FC in place draining yellow urine. Son called update given, Maddie delievered from the facility, sent to the pharmacy to be tagged, medications needs to be given tonight as per MD. Fall precations in place.
[2021-05-21 20:15] VITALS: BP 132/84
--- NOTE | 2021-05-22 02:22 | NUR ---
PT CARE ASSUMED WITH PT IN BED.PT IS A/O X2.PT BECAME IRRITABLE AND REFUSED TO TAKE MEDS.PT IS UP WITH X1 ASSIST TO BSC.PT ASKED FOR ICE TEA AND NECTAR THICK ICE TEA GIVEN.PT IS ON MECHANICAL ALTERED DIET AND NECTAR THICK LIQUIDS.PT HAS A SMITH CATHETER.IV ACCESS ON RFA WITH D5 AT 100CC/HR.PT DENIED CARE AND DIDNOT WANT ANYONE TO ENTER HER ROOM AT TILL THIS TIME.WILL CONTINUE TO MONITOR PER POC
[2021-05-22 05:44] LABS: HEMATOCRIT 30.1 % (37.0-47.0); HEMOGLOBIN 9.8 gm/dL (12.0-15.0); MCH 30.9 pg (26.0-34.0); MCHC 32.5 g/dL (28.0-37.0); MCV 94.9 fL (80.0-100.0); RBC 3.18 mil/uL (4.20-5.00); RDW 16.1 % (10.5-14.5); WBC 7.9 thou/uL (4.0-11.0)
[2021-05-22 05:59] LABS: CALCIUM 11.1 mg/dL (8.5-10.1); CREATININE 1.4 mg/dL (0.6-1.0); MAGNESIUM 2.3 mg/dL (1.8-2.4); POTASSIUM 4.1 mmol/L (3.5-5.1)
[2021-05-22 08:15] VITALS: BP 148/81
--- NOTE | 2021-05-22 13:11 | NUR ---
Pt distressed that son has not been in person to visit. Up with assist of 2 to chair. Pt asked RN why she still had mukherjee - RN to call MD to confirm need.
[2021-05-22 15:30] VITALS: BP 128/91
--- NOTE | 2021-05-22 15:56 | NUR ---
CARE TEAM INDICATED THAT IS MEDICALLY STABLE TO DC BACK TO [facility] THIS DAY. CM REACHED OUT TO [facility] THOMAS THERE. HE INDICATED HE DIDN'T HAVE SUFFICIENT STAFF TO ACCEPT PT BACK THIS DAY BUT THAT HE COULD ACCEPT AT 10:00 TOMORROW. CM NOTIFIED HOSPITALIST. ANTICIPATE DC BACK TO [facility] TOMORROW AT 10:00. CM NOTIFIED PT AND SON. CM TO FAX ORDERS THIS AFTERNOON.
[2021-05-22 19:40] VITALS: BP 122/85
--- NOTE | 2021-05-23 00:43 | NUR ---
ASSUEMED PT CARE AT 1900. PT IS ALERT AN ORIENTED TO SELF. PT REFUSED TO SOME OF THE EVENING MEDS. PT IS IRRITABLE. PT CAN BE IMPULSIVE AND NON-COMPLIANT WITH THE USE OF CALL LIGHT. PT IS ON MECHANICAL DIET. PT IS UPX1 TO THE BSC. PT CAN BE INCONTINENT AT TIMES. VS ARE WITHIIN NORMAL RANGE AND MEDS GIVEN PER EMAR ORDER. NO VISIBLE SIGN OF DISTRESS WAS NOTED. FALL PRECAUTIONS IN PLACE WITH CALL LIGHT WITHIN REACH. WILL CONTINUE TO MONITOR.
[2021-05-23 06:18] LABS: HEMOGLOBIN 10.1 gm/dL (12.0-15.0); MCHC 32.6 g/dL (28.0-37.0); MCV 95.2 fL (80.0-100.0); RBC 3.25 mil/uL (4.20-5.00); RDW 16.3 % (10.5-14.5); WBC 7.4 thou/uL (4.0-11.0)
[2021-05-23 06:26] LABS: CALCIUM 11.2 mg/dL (8.5-10.1); CREATININE 1.6 mg/dL (0.6-1.0); MAGNESIUM 2.3 mg/dL (1.8-2.4); POTASSIUM 4.1 mmol/L (3.5-5.1)
[2021-05-23 08:35] VITALS: BP 123/71
--- NOTE | 2021-05-23 09:50 | NUR ---
ASSUMED PT CARE THIS AM. PT IS ALERT & ORIENTED X2,3. REMOVED IV. GIVEN MORNING MEDS. TOLERATED DIET AND MEDS THIS AM. CALLED FOR HANDS OF REPORT. GIVEN BATH THIS AM. AWAITING FOR FACILITY TO PRODUCT SUPPORT ENGINEER THIS AM. PT IS ON TELE MONITOR ON. WILL CONTINUE TO MONITOR PT. FOLLOW POC.
== END 2021-05-23 10:08 | DRG 208 ==
LOC: ER 12:13 → EROBS 15:12 → ICU 20:28 → 4W 05-17 22:10
PROVIDERS: Emergency Medicine; Internal Medicine; Internal Medicine Pulmonary Disease; Pediatrics; ADMIT Hospitalist; ATTEND Hospitalist
PROC: 5A1945Z Respiratory Ventilation, 24-96 Consecutive Hours (ICD-10-PCS; principal; 2021-05-11)
PROC: 02HV33Z Insertion of Infusion Device into Superior Vena Cava, Percutaneous Approach (ICD-10-PCS; principal; 2021-05-11)
PROC: 0BH17EZ Insertion of Endotracheal Airway into Trachea, Via Natural or Artificial Opening (ICD-10-PCS; principal; 2021-05-11)
PROC: 0DH68UZ Insertion of Feeding Device into Stomach, Via Natural or Artificial Opening Endoscopic (ICD-10-PCS; 2021-05-14)
PROC: 5A09357 Assistance with Respiratory Ventilation, Less than 24 Consecutive Hours, Continuous Positive Airway Pressure (ICD-10-PCS; 2021-05-15)
DX: J69.0 Pneumonitis due to inhalation of food and vomit (principal); J96.01 Acute respiratory failure with hypoxia; E43 Unspecified severe protein-calorie malnutrition; G93.40 Encephalopathy, unspecified; K22.10 Ulcer of esophagus without bleeding; E87.0 Hyperosmolality and hypernatremia; E87.2 Acidosis; D62 Acute posthemorrhagic anemia; B37.0 Candidal stomatitis; N17.9 Acute kidney failure, unspecified; N39.0 Urinary tract infection, site not specified; R57.9 Shock, unspecified; F41.9 Anxiety disorder, unspecified; I25.10 Atherosclerotic heart disease of native coronary artery without angina pectoris; F32.9 Major depressive disorder, single episode, unspecified; E03.9 Hypothyroidism, unspecified; E78.5 Hyperlipidemia, unspecified; K29.70 Gastritis, unspecified, without bleeding; K44.9 Diaphragmatic hernia without obstruction or gangrene; T56.891A Toxic effect of other metals, accidental (unintentional), initial encounter; R73.9 Hyperglycemia, unspecified; K22.2 Esophageal obstruction; F29 Unspecified psychosis not due to a substance or known physiological condition; F25.0 Schizoaffective disorder, bipolar type; E83.52 Hypercalcemia; Z20.822 Contact with and (suspected) exposure to COVID-19; Z88.8 Allergy status to other drugs, medicaments and biological substances; Y92.89 Other specified places as the place of occurrence of the external cause; Z68.25 Body mass index [BMI] 25.0-25.9, adult
CPT/HCPCS: 10045; 10078